=== PATIENT | female | born 1985 | race Two or more races ===

== ENCOUNTER 2020-05-16 00:55 | Emergency (ER) | payer MEDICARE, MEDICAID, SELFPAY ==
[2020-05-16 01:04] VITALS: BP 159/102; PULSE 120; RESP 15; TEMP 36.4
--- NOTE | 2020-05-16 01:48 | PC.NURSE ---
PT DENIES S/H IDEATIONS. PT STATES IM HERE, BUT I DON'T KNOW WHY, MY DROPPED ME OFF AND IS IN THE WR . PT ALERT, SPEAKING IN FULL SENTENCES, RESPIRATIONS EASY, N/L. SKIN W/D/P. PT DENIES ANY COMPLAINTS AT THIS TIME.
--- NOTE | 2020-05-16 01:50 | PC.NURSE ---
PT RETURNING TO PT'S ROOM, BELONGINGS WHERE GONE AND PT NOT IN HER ROOM. LOOKED FOR PT IN RESTROOMS AND IN WR. PT LEFT BEFORE MD'S EVAL.
== END 2020-05-16 01:45 | disposition left against medical advice (07) ==
LOC: HO.ED 01:42
PROVIDERS: Emergency Provider Emergency Medicine
DX: F41.9 Anxiety disorder, unspecified (principal)
CPT/HCPCS: 99281

== ENCOUNTER 2020-05-20 20:23 | Inpatient (IN) | payer MEDICARE, MEDICAID, SELFPAY ==
[2020-05-20 21:03] VITALS: BP 175/101; PULSE 112; RESP 18; TEMP 36.8; O2SAT 99; BMI 37.3
--- NOTE | 2020-05-20 21:09 | PC.NURSE ---
PT COOPERATIVE WITH MANAGER CUSTOMER SERVICE WITH FEMALE RN. UNABLE TO PROVIDE URINE SPEC. HYPERVERBAL. RESPONDING TO INTERNAL STIMULI, TALKING TO SELF. PT DENIES SI/HI, REPORTS SHE DOES NOT KNOW WHY SHE IS HERE.
[2020-05-20 22:07] LABS: Hematocrit 37.8 % (37-47); Hemoglobin 12.7 g/dl (12.0-16.0); Mean Corpuscular HGB Conc 33.6 g/dl (31.0-35.0); Mean Corpuscular Hemoglobin 31.4 pg (27.0-33.0); Mean Corpuscular Volume 93.6 fL (80-98); Mean Platelet Volume 10.3 fL (9.4-12.3); Platelet Count 321 X10*3/uL (160-400); Red Blood Count 4.04 X10*6/uL (4.20-5.50); Red Cell Distribution Width 11.9 % (11.0-16.0); White Blood Count 14.3 X10*3/uL (4.8-10.8)
[2020-05-20 22:27] LABS: Anion Gap 14 (12-20); Blood Urea Nitrogen 22 mg/dL (9-16); Calcium 9.3 mg/dL (8.4-10.2); Carbon Dioxide 25 mmol/L (22-29); Chloride 104 mmol/L (96-108); Creatinine Clr Calc Pharmacy 80.8; Estimated Glomerular Filt Rate > 60; Glucose Random 185 mg/dL (60-115); Potassium 3.8 mmol/l (3.3-5.1); Sodium 139 mmol/L (135-145)
[2020-05-20 23:39] LABS: Amphetamine Screen Urine Not Detected (Not Detect); Barbiturates, Urine Not Detected (Not Detect); Benzodiazepines Screen Urine Not Detected (Not Detect); Cannabinoid Screen Urine POSITIVE (Not Detect); Cocaine Screen Urine Not Detected (Not Detect); Opiate Screen Urine Not Detected (Not Detect); Phencyclidine Screen Urine Not Detected (Not Detect)
[2020-05-20 23:42] VITALS: BP 172/101; PULSE 107; RESP 18; TEMP 36.2; O2SAT 98
[2020-05-20 23:52] LABS: Glucose Urine UA NEG (NEG); Leukocyte Esterase Urine NEG (NEG); Nitrite Urine NEG (NEG); Urine Blood NEG (NEG); Urine Ketones NEG (NEG); Urine Protein NEG (NEG-TRACE)
[2020-05-20 23:54] LABS: Appearance Urine CLEAR; Color Urine YELLOW
[2020-05-20 23:56] LABS: UPreg QC Valid YES; Urine Pregnancy NEGATIVE (NEGATIVE)
[2020-05-21] VITALS (8 sets, daily range): BP systolic 131–152; BP diastolic 78–106; PULSE 18–112; RESP 16–20; TEMP 36.1–36.8; O2SAT 95–98
--- NOTE | 2020-05-21 | XR_ITS ---
EXAMINATION: XR CHEST CLINICAL INFORMATION: Leukocytosis COMPARISON: None TECHNIQUE: Frontal view of the chest was obtained. FINDINGS: The cardiac and mediastinal contours are normal. The lungs are clear. There is no pleural effusion or pneumothorax. There are degenerative changes of the spine. IMPRESSION: No evidence for pneumonia.
--- NOTE | 2020-05-21 00:42 | ED_ITS ---
HPI - Psych General Chief Complaint: Psychiatric Symptoms Stated Complaint: PSYCHOTIC EPISODE Time Seen by Provider: 05/21/20 00:13 Source: RN notes reviewed Mode of arrival: EMS Limitations: no limitations History of Present Illness HPI Narrative: Patient brought in by EMS for evaluation. Patient is sent by family for psychotic episode. Patient is not compliant with her psych and medical meds. Patient has been loud and talking to herself. Patient has been talking to her imaginary boyfriend that does not exist. Patient herself denies any suicidal / homicidal ideation. MD complaint: other ( Psychotic) Related Data Home Medications Medication Instructions Recorded Confirmed albuterol sulfate 1 vial INHALATION Q4H PRN 05/21/20 05/21/20 atorvastatin 1 tab PO BEDTIME 05/21/20 05/21/20 dulaglutide [Trulicity] 0.5 ml SUBCUT QWEEK 05/21/20 05/21/20 fluticasone propion-salmeterol 1 puff INHALATION BID 05/21/20 05/21/20 [Advair Diskus] hydroxyzine HCl 1 tab PO TID PRN 05/21/20 05/21/20 lisinopril 1 tab PO DAILY 05/21/20 05/21/20 trazodone 2 tab PO BEDTIME 05/21/20 05/21/20 Allergies Allergy/AdvReac Type Severity Reaction Status Date / Time No Known Allergies Allergy Verified 05/21/20 02:41 [No Known Allergies*] Review of Systems Constitutional: Constitutional: Reports as per HPI, Reports no additional constitutional complaints and Denies snoring Cardiovascular: Cardiovascular: Reports as per HPI, Reports no additional cardiovascular complaints, Denies Abdominal Cramping after Meds, Denies Abdominal Distension, Denies dyspnea, Denies dyspnea on exertion, Denies orthopnea and Denies paroxysmal nocturnal dyspnea Respiratory: Respiratory: Reports no additional respiratory complaints, Reports no additional respiratory complaints, Denies change in phlegm color, Denies chest congestion, Denies cough, Denies hemoptysis, Denies excessive phlegm production, Denies pain on inspiration, Denies pain with cough, Denies dyspnea, Denies dyspnea on exertion, Denies snoring, Denies stridor and Denies wheezing Gastrointestinal: Gastrointestinal: Reports as per HPI, Reports no additional gastrointestinal complaints, Denies abdominal pain, Denies belching, Denies melena, Denies bloating and Denies hematochezia Neurologic: Reports behavioral changes Psychiatric: Psychiatric: Reports behavioral changes, Reports difficulty concentrating, Reports visual hallucinations, Denies homicidal ideation and Denies suicidal ideation Allergic/Immunologic: Allergic/Immunologic: Denies wheezing ON LICENSE OF [facility] Social History Social History Advance Directives: No Advance Directives Information Provided: No Physical Exam Vital Signs and I&O and Narrative: Vital Signs and I&O: Vital Signs Temp 97.1 F 05/20/20 23:42 Pulse 18 L 05/21/20 01:28 Resp 18 05/20/20 23:42 BP 172/101 H 05/20/20 23:42 Pulse Ox 98 05/20/20 23:42 Intake & Output 05/20/20 05/20/20 05/21/20 06:59 18:59 06:59 Weight 86.581 kg Body Mass Index 37.3 Const: General: cooperative, comfortable and no acute distress HENMT: Head: Yes normal to inspection Chest: Chest palpation & inspection: normal inspection of the chest, normal palpation of entire chest wall, normal inspection of the chest and no crepitus Resp: Effort & Inspection: normal respiratory effort, able to speak in comp lete sentences, normal respiratory pattern, no audible wheezes and no cough Auscultation: clear to auscultation bilaterally Cardio: Jugular venous distension: no JVD Rhythm: regular rhythm Heart sounds: S1 normal heart sound present and S2 normal heart sound present GI: Inspection: Yes normal to inspection, No abdominal wall ecchymosis, No Abdominal wall edema, No distended and No incision Palpation (GI): nontender Psych: Appearance: disheveled Speech and movement: Normal speech and movement present Affect: Indifferent affect present Attitude: cooperative Thought process: Flight of ideas present and Tangential thought process present Thought content: Hallucination(s) present ( imagine boyfriend) visual Course Course Course Narrative: patient will be crisis evaluation patient for psychosis. Patient presently is not suicidal or homicidal. Patient will have labs drawn. Patient will be given Ativan and Benadryl to calmed down and improved vital signs. Reevaluation(s) Reevaluation #1: patient is sleeping and not in any distress. Patient awaiting BHN evaluation in the morning Time: 02:46 MDM - Psych MDM Narrative Medical decision making narrative: patient will be awaiting for BHN in consultation in the morning. Patient Benadryl to help her fall asleep. Patient was extremely hyper and psychotic. Case signed out to Dr. Hall Lab Data Result diagrams: 05/20/20 22:01 05/20/20 22:02 Labs: Lab Results 05/20/20 05/20/20 05/20/20 Range/Units 22:00 22:00 22:01 WBC 14.3 H (4.8-10.8) X10*3/uL RBC 4.04 L (4.20-5.50) X10*6/uL Hgb 12.7 (12.0-16.0) g/dl Hct 37.8 (37-47) % MCV 93.6 (80-98) fL MCH 31.4 (27.0-33.0) pg MCHC 33.6 (31.0-35.0) g/dl RDW 11.9 (11.0-16.0) % Plt Count 321 (160-400) X10*3/uL MPV 10.3 (9.4-12.3) fL Absolute Nucleated RBC 0.000 (0.0-0.012) X10*3/uL Nucleated RBC % (auto) 0.0 (0.0-0.2) /100WBC Sodium (135-145) mmol/L Potassium (3.3-5.1) mmol/l Chloride (96-108) mmol/L Carbon Dioxide (22-29) mmol/L Anion Gap (12-20) BUN (9-16) mg/dL Creatinine (0.5-1.4) mg/dL Estim Creat Clear Calc Estimated GFR Random Glucose (60-115) mg/dL Calcium (8.4-10.2) mg/dL Urine Color YELLOW Urine Appearance CLEAR Urine pH 6.0 (5.0-8.0) Ur Specific [place] 1.020 (1.005-1.025) Urine Protein NEG (NEG-TRACE) MG/DL Urine Glucose (UA) NEG (NEG) MG/DL Urine Ketones NEG (NEG) MG/DL Urine Blood NEG (NEG) Urine Nitrite NEG (NEG) Ur Leukocyte Esterase NEG (NEG) Urine Test NEGATIVE (NEGATIVE) Urine Opiates Screen (Not Detect) Ur Barbiturates Screen (Not Detect) Ur Phencyclidine Scrn (Not Detect) Ur Amphetamines Screen (Not Detect) U Benzodiazepines Scrn (Not Detect) Urine Cocaine Screen (Not Detect) U Marijuana (THC) Screen (Not Detect) 05/20/20 05/20/20 Range/Units 22:02 23:00 WBC (4.8-10.8) X10*3/uL RBC (4.20-5.50) X10*6/uL Hgb (12.0-16.0) g/dl Hct (37-47) % MCV (80-98) fL MCH (27.0-33.0) pg MCHC (31.0-35.0) g/dl RDW (11.0-16.0) % Plt Count (160-400) X10*3/uL MPV (9.4-12.3) fL Absolute Nucleated RBC (0.0-0.012) X10*3/uL Nucleated RBC % (auto) (0.0-0.2) /100WBC Sodium 139 (135-145) mmol/L Potassium 3.8 (3.3-5.1) mmol/l Chloride 104 (96-108) mmol/L Carbon Dioxide 25 (22-29) mmol/L Anion Gap 14 (12-20) BUN 22 H (9-16) mg/dL Creatinine 0.94 (0.5-1.4) mg/dL Estim Creat Clear Calc 80.8 Estimated GFR > 60 Random Glucose 185 H (60-115) mg/dL Calcium 9.3 (8.4-10.2) mg/dL Urine Color Urine Appearance Urine pH (5.0-8.0) Ur Specific [place] (1.005-1.025) Urine Protein (NEG-TRACE) MG/DL Urine Glucose (UA) (NEG) MG/DL Urine Ketones (NEG) MG/DL Urine Blood (NEG) Urine Nitrite (NEG) Ur Leukocyte Esterase (NEG) Urine Test (NEGATIVE) Urine Opiates Screen Not Detected (Not Detect) Ur Barbiturates Screen Not Detected (Not Detect) Ur Phencyclidine Scrn Not Detected (Not Detect) Ur Amphetamines Screen Not Detected (Not Detect) U Benzodiazepines Scrn Not Detected (Not Detect) Urine Cocaine Screen Not Detected (Not Detect) U Marijuana (THC) Screen POSITIVE H (Not Detect) Discharge Plan Discharge Prescriptions: No Action atorvastatin 40 mg tablet 1 tab PO BEDTIME RF: 0 fluticasone propion-salmeterol [Advair Diskus] 250-50 mcg/dose blister with device 1 puff inhalation BID RF: 0 albuterol sulfate 2.5 mg /3 mL (0.083 %) solution for nebulization 1 vial inhalation Q4H PRN (Reason: wheezing) RF: 0 trazodone 100 mg tablet 2 tab PO BEDTIME RF: 0 hydroxyzine HCl 25 mg tablet 1 tab PO TID PRN (Reason: anxiety) RF: 0 lisinopril 2.5 mg tablet 1 tab PO DAILY RF: 0 Trulicity 1.5 mg/0.5 mL pen injector 0.5 ml subcut QWEEK RF: 0
[2020-05-21] MEDS: LORazepam 1 MG TABLET 2 MG PO (00:46)
[2020-05-21] MEDS: diphenhydrAMINE HCL 25 MG TABLET 50 MG PO (00:47)
--- NOTE | 2020-05-21 00:49 | MHC.MBSS ---
Patient just got seen by provider, patient psychotic, actively self dialoguing, loud at time but redirectable. Pleasant on engaged. Provider ordered Ativan 2 mg tablet and Benadryl 50 mg/administered as ordered. Patient singing currently. Will continue to monitor.
--- NOTE | 2020-05-21 02:48 | PC.NURSE ---
Patient in her room, kneeling on floor with body on bed, appears praying, quiet, medication reconciliation completed/reviewed by provider/pending emar update. Will continue to monitor..
--- NOTE | 2020-05-21 04:05 | PC.NURSE ---
Patient in bed appears sleeping no distress observed/reported. Will continue to monitor.
[2020-05-21 06:09] LABS: Glucose, Whole Blood 119 mg/dL (60-115)
--- NOTE | 2020-05-21 06:27 | PC.NURSE ---
Patient out of room in milieu, denied distress, POC was 119 at 0607. Patient continues self dialoguing. Will continue to monitor.
--- NOTE | 2020-05-21 07:14 | PC.NURSE ---
Report recieved. Pt currently sitting in her room, eating breakfast. Self-dialogue noted. Pt's called and said that he does not believe she has been taking her medications, states that he could not find any medication bottles at home. Her stated that this is the worst that he has seen her and that every year this happens, he stated that last year she spent a few months at [facility]. pt currently waiting to be seen by angel.
[2020-05-21] MEDS: Fluticasone/Vilanterol 100/25 BLST.W.DEV 1 PUFF INHALE (09:41)
[2020-05-21] MEDS: lisinopriL 2.5 MG TABLET PO (09:42)
--- NOTE | 2020-05-21 10:11 | PC.NURSE ---
Pt listening to music, calm and cooperative. self-dialogue contines to be noted, pt pleasant, awaiting eval by jenn
--- NOTE | 2020-05-21 10:58 | PC.NURSE ---
Pt resting, calm and cooperative. denies complaints. per provider ok to change vital signs to q6.
--- NOTE | 2020-05-21 13:02 | PC.NURSE ---
PT resting, calm and cooperative, denies complaints.
--- NOTE | 2020-05-21 15:06 | PC.NURSE ---
PT currently in her room, appears to be responding internally, self dialogue heard. pt calm and cooperative, pleasant in conversation, denies complaints.
--- NOTE | 2020-05-21 15:46 | PC.NURSE ---
Pt noted to be naked in her room singing loudly, pt redirected to get dressed. Pt offered medication, pt refused, stating that Leora is not her name, she would like to be called Xiomara and that this RN can get the fuck out of my room , pt then slammed the door. Pt continues to sing loudly and yell in her room.
--- NOTE | 2020-05-21 16:59 | PC.NURSE ---
Pt continues to sing in her room, denies complaints, self-dialogue noted.
[2020-05-21] MEDS: Atorvastatin Calcium 40 MG TABLET PO (20:10)
[2020-05-21] MEDS: traZODone HCL 100 MG TABLET 200 MG PO (20:10)
--- NOTE | 2020-05-21 21:52 | PC.NURSE ---
pt in her room talking to herself, taking her clothing off. pt is pleasant with this rn and is taking her medications as prescribed.
[2020-05-21] MEDS: hydrOXYzine HCL 25 MG TABLET PO (23:52)
--- NOTE | 2020-05-21 23:55 | PC.NURSE ---
pt talking to herself raising her voice, pt medicated with hydroxyzine 25 mg. pt is in her room undressed and blankets over her body. no skin showing.
[2020-05-22] VITALS (10 sets, daily range): BP systolic 113–128; BP diastolic 57–87; PULSE 19–122; RESP 16–20; TEMP 36.2–37; O2SAT 95–99
--- NOTE | 2020-05-22 | ECG_ITS ---
Test Reason : MEDICAL CLEARANCE Blood Pressure : / mmHG Vent. Rate : 085 BPM Atrial Rate : 085 BPM P-R Int : 122 ms QRS Dur : 082 ms QT Int : 384 ms P-R-T Axes : 060 018 041 degrees QTc Int : 456 ms Normal sinus rhythm Normal ECG No previous ECGs available Referred By: Magnolia Hall Electronically Signed By:NOEMI FREED MD
--- NOTE | 2020-05-22 01:09 | PC.NURSE ---
pt took a shower and is now back in her room. pt is with staff making up her bed with her. pt is visable on the monitor. pt is talking in jamaican about her family.
[2020-05-22] MEDS: OLANZapine 5 MG TABLET PO (02:52)
--- NOTE | 2020-05-22 03:15 | PC.NURSE ---
pt in her room undressed and removing the mattress onto the floor. pt was having a conversation with her . pt is now dressed and is making her bed. door is closed. needs at bedside
--- NOTE | 2020-05-22 03:39 | PC.NURSE ---
pt has been non stop talking and no s/s of tiredness. pt has rapied speach in uruguayan with the staff. needs met, pt remaking the bed over and over. staff is now putting the matress back on the bed, pt response is laughter. both the pt and staff member are working together to assist pt back to bed and with making the bed.
--- NOTE | 2020-05-22 04:07 | PC.NURSE ---
pt having hypersexual behavior. staff in room redressing pt again. also to inform her that her is asleep. pt is back to bed with hospital attire on.
--- NOTE | 2020-05-22 04:38 | PC.NURSE ---
pt out of her room with clothing on and blanket over her head. pt proceeded to the common area and is playing with herself inappropriatly. attempted to redirect pt and she states that all the men want her.
--- NOTE | 2020-05-22 06:09 | PC.NURSE ---
pt appears to be asleep in her bed. pt has a bathblanket on her. pt is visable on the monitor, pt is a inpt bed search. pt has been off her medication for 1.5 years.
--- NOTE | 2020-05-22 06:17 | PC.NURSE ---
pt has just fell asleep for 15 min. pt comes out of her room with no clothing on. pt has been instructed to keep her clothing on due to not approp and male pt in the pod. pt has been redirected mult times and will follow commands but for just a brief time period and then pt undresses and starts to have hyper sexual behavior. example pt has acted out her wedding in her room then goes to the [facility] area to have her honeymoon. pt pulled the matress off the bed for her to sleep on, pt is not even in the hospital. provider made aware and pt has been medicated with atarax, zyuprexa. pt still is seeing and hearing voices.
[2020-05-22] MEDS: LORazepam 1 MG TABLET 2 MG PO (07:07)
[2020-05-22] MEDS: OLANZapine 10 MG TABLET PO (07:07)
--- NOTE | 2020-05-22 07:12 | PC.NURSE ---
Report received. PT was incontinent and ingesting her own excrement during an episode this morning. PT was rocking back and forth in her chair and throwing herself on the floor. PT accepted medications per eMAR.
--- NOTE | 2020-05-22 07:28 | PC.NURSE ---
Pt noted to put herself on the floor gently, bracing with her hands, pt redirected, pt attempted to stand on the chair multiple times, pt looking at staff but will not obey commands. pt assisted to dress and lay in her bed. Dr. beckman in to see pt, psych consult in place. Pt then noted to put feces into her mouth, it was removed, staff cleaned pt's hands, pt accepted assistance. Pt responding to staff at this time, pt states I don't know whats going on, this has never happened before. Pt oriented to place, time and self, plan of care explained, pt states that she just wants help.
--- NOTE | 2020-05-22 09:00 | PC.NURSE ---
PT is sleeping in bed. Breathing is even and unlabored. Inpatient bed search in progress.
--- NOTE | 2020-05-22 10:13 | PC.NURSE ---
Provider stated PT is ok for vitals q6h.
--- NOTE | 2020-05-22 11:04 | PC.NURSE ---
PT woke up and went to take a shower. When she came out of shower she made her bed and then went back into the shower again with her clothes on. PT is now in the shower engaging in self dialogue.
--- NOTE | 2020-05-22 13:15 | PC.NURSE ---
PT is pacing around outside of her room while conversing with staff. Calm and cooperative. No other complaints at this time.
[2020-05-22] MEDS: LORazepam 1 MG TABLET PO ×2 (14:02→20:27)
[2020-05-22] MEDS: OLANZapine ODT 10 MG TAB.RAPDIS 5 MG TRANSLINGU (14:02)
--- NOTE | 2020-05-22 15:15 | PC.NURSE ---
PT is in the bathroom, complaining that she has pain ad needs to have a bowel movement. Engaging in self dialogue and sobbing frequently. Cooperative and able to be redirected.
--- NOTE | 2020-05-22 16:52 | P.CNPS_ITS ---
History of Present Illness Chief Complaint: PSYCHOTIC EPISODE Reason for Consult: psychosis Requesting physician: Richy Duffy Discussed with referring provider: Yes Sources of Information: chart reviewed and crisis/core team assessment reviewed HPI Narrative: Patient is a 34 year old female with reported history of Bipolar I disorder. Currently in BH area of ED due to erratic behaviors at home, including paranoia, and responding to internal stimuli. During her brief time in the emergency department she has been hypersexual, pressured, and quite psychotic. She has one more than one occasion placed her feces in her mouth, she reportedly licked the floor for some time, and is frequently engaging in full conversations with voices only she is hearing. She has been accepting of PRN medications that have been offered to her, and when this ad copy writer arrived this morning she was asleep after having recently recieved 10mh Zyprexa PO and Lorazepam 1mg PO. Based on clincial report, not appropriate to wake patient to conduct interview, so chart reviewed, including crisis eval and discussed with RN. Labs and EKG reviewed. Past Psychiatric History: Per collateral, pt has diagnosis of Bipolar Disorder and has been psychiatrically admitted numerous time in the past for similar presentation (hallucinations, paranoia, lack of sleep). reported that patient has been off of her medications for quite some time (unclear what her previous medication regimen was) Medical Evaluation Reviewed: Yes Personal & Social History: Per crisis eval: Patient is and has strong social supports Also reported that patient smokes marijuana frequently UDS negative for any other substances Review of Systems Review of Systems Yes Unobtainable due to mental status Diagnostics Vital Signs (24Hr): Vital Signs - 24 hr 05/21/20 20:18 05/21/20 23:59 05/22/20 02:09 Temperature 97 F 98.3 F 98.6 F Pulse Rate 112 H 102 H Respiratory Rate 20 16 Blood Pressure 152/96 H 134/79 Pulse Oximetry 95 96 05/22/20 02:11 05/22/20 05:02 05/22/20 06:43 Temperature 98.6 F 98.4 F Pulse Rate 92 97 76 Respiratory Rate 18 20 16 Blood Pressure 122/77 128/79 Pulse Oximetry 97 95 98 05/22/20 07:25 05/22/20 08:00 05/22/20 13:00 Temperature 97.5 F 97.6 F Pulse Rate 85 19 L 122 H Respiratory Rate 16 18 Blood Pressure 113/57 L Pulse Oximetry 99 98 Body Mass Index 37.3 Labs Results: 05/20/20 22:01 05/20/20 22:02 Labs: Laboratory Results - last 48 hr 05/20/20 05/20/20 05/20/20 22:00 22:00 22:01 WBC 14.3 H RBC 4.04 L Hgb 12.7 Hct 37.8 MCV 93.6 MCH 31.4 MCHC 33.6 RDW 11.9 Plt Count 321 MPV 10.3 Absolute Nucleated RBC 0.000 Nucleated RBC % (auto) 0.0 Sodium Potassium Chloride Carbon Dioxide Anion Gap BUN Creatinine Estim Creat Clear Calc Estimated GFR POC Glucose Random Glucose Calcium Urine Color YELLOW Urine Appearance CLEAR Urine pH 6.0 Ur Specific [place] 1.020 Urine Protein NEG Urine Glucose (UA) NEG Urine Ketones NEG Urine Blood NEG Urine Nitrite NEG Ur Leukocyte Esterase NEG Urine Test NEGATIVE Urine Opiates Screen Ur Barbiturates Screen Ur Phencyclidine Scrn Ur Amphetamines Screen U Benzodiazepines Scrn Urine Cocaine Screen U Marijuana (THC) Screen 05/20/20 05/20/20 05/21/20 22:02 23:00 06:05 WBC RBC Hgb Hct MCV MCH MCHC RDW Plt Count MPV Absolute Nucleated RBC Nucleated RBC % (auto) Sodium 139 Potassium 3.8 Chloride 104 Carbon Dioxide 25 Anion Gap 14 BUN 22 H Creatinine 0.94 Estim Creat Clear Calc 80.8 Estimated GFR > 60 POC Glucose 119 H Random Glucose 185 H Calcium 9.3 Urine Color Urine Appearance Urine pH Ur Specific [place] Urine Protein Urine Glucose (UA) Urine Ketones Urine Blood Urine Nitrite Ur Leukocyte Esterase Urine Test Urine Opiates Screen Not Detected Ur Barbiturates Screen Not Detected Ur Phencyclidine Scrn Not Detected Ur Amphetamines Screen Not Detected U Benzodiazepines Scrn Not Detected Urine Cocaine Screen Not Detected U Marijuana (THC) Screen POSITIVE H Mental Status Exam Mental Status Exam Narrative: Patient was sleeping, but per report she is bizarre, pressured, anxious, responding to internal stimuli, restless at times, hypersexual at times, disorganized with poor insight and judgment Medications Medications Current Medications Generic Name Dose Route Start Last Admin Trade Name Freq PRN Reason Stop Dose Admin Albuterol Sulfate 2.5 mg 05/21/20 02:43 Albuterol Sulfate (0.083%) 2.5 Mg/3 Ml Vial.Neb INHALE Q4H PRN wheezing Atorvastatin Calcium 40 mg 05/21/20 21:00 05/21/20 20:10 Atorvastatin Calcium 40 Mg Tablet PO 40 mg BEDTIME SEBASTIÁN Administration Fluticasone/Vilanterol 1 puff 05/21/20 09:00 05/22/20 10:19 Fluticasone/Vilanterol 100/25 Blst.W.Dev INHALE Not Given RDAILY SEBASTIÁN Hydroxyzine HCl 25 mg 05/21/20 02:43 05/21/20 23:52 Hydroxyzine Hcl 25 Mg Tablet PO 25 mg TID PRN Administration anxiety Lisinopril 2.5 mg 05/21/20 09:00 05/22/20 10:19 Lisinopril 2.5 Mg Tablet PO Not Given DAILY SEBASTIÁN Protocol Lorazepam 1 mg 05/22/20 13:08 05/22/20 14:02 Lorazepam 1 Mg Tablet PO 1 mg Q4H PRN Administration anxiety/restlessness Olanzapine 5 mg 05/22/20 13:00 05/22/20 14:02 Olanzapine Odt 10 Mg Tab.Rapdis TRANSLINGU 5 mg DAILY PRN Administration Agitation Oxcarbazepine 300 mg 05/22/20 21:00 Oxcarbazepine 300 Mg Tablet PO BID SEBASTIÁN Trazodone HCl 200 mg 05/21/20 21:00 05/21/20 20:10 Trazodone Hcl 100 Mg Tablet PO 200 mg BEDTIME SEBASTIÁN Administration Allergies Allergies Allergy/AdvReac Type Severity Reaction Status Date / Time No Known Allergies Allergy Verified 05/21/20 02:41 [No Known Allergies*] Assessment & Plan Assessment & Plan (1) Bipolar I, most recent episode manic, severe with psychotic behavior: Status: Acute Code(s): F31.2 - Bipolar disorder, current episode manic severe with psychotic features Recommendations: * Zyprexa 10mg QHS * Zydis 5mg QD PRN for agitation * Lorazepam 1mg Q4 for restlessness * Trileptal 300mg BID * * Pt awaiting inpatient admission, doses should be titrated at that time * If additional PRNs are needed may increase lorazepam and Zyprexa doses as needed to maintain patient safety Greater than 50% of the session was spent on counseling and/or coordination of care
--- NOTE | 2020-05-22 17:15 | PC.NURSE ---
PT is standing in her room engaging in self dialogue. Calm and cooperative, easily redirectable. No other complaints.
--- NOTE | 2020-05-22 19:08 | PC.NURSE ---
Report received from Brennan and Neeraj MENEZES. Pt resting quietly in her room at this time. Awaiting bedsearch.
[2020-05-22] MEDS: Atorvastatin Calcium 40 MG TABLET PO (20:27)
[2020-05-22] MEDS: traZODone HCL 100 MG TABLET 200 MG PO (20:27)
[2020-05-22] MEDS: OXcarbazepine 300 MG TABLET PO (20:27)
--- NOTE | 2020-05-22 22:02 | PC.NURSE ---
Pt noted to be sleeping at this time, resp reg and even.
[2020-05-23 02:31] VITALS: RESP 15
--- NOTE | 2020-05-23 03:51 | PC.NURSE ---
Pt awake, requesting coffee for her throat and lips. Enc to have decaf tea instead. Pt agreeable. Pt asking for another pair of socks and if she can sit out in the common area, states when I am in the room I hear voices Pt currently making her bed and talking to herself in her room.
[2020-05-23 06:53] VITALS: BP 136/88; PULSE 96; RESP 16; TEMP 36.3; O2SAT 99
[2020-05-23] MEDS: OXcarbazepine 300 MG TABLET PO ×2 (08:40→21:52)
[2020-05-23 08:41] VITALS: BP 136/88; PULSE 96
[2020-05-23] MEDS: OLANZapine 2.5 MG TABLET PO (08:41)
[2020-05-23] MEDS: lisinopriL 2.5 MG TABLET PO (08:41)
--- NOTE | 2020-05-23 08:50 | PC.NURSE ---
pt calm and cooperative, took meds with no incident. performing adls independently.
[2020-05-23 10:53] VITALS: BP 118/72; PULSE 99; RESP 18; TEMP 37; O2SAT 96
[2020-05-23 10:59] LABS: SARS COV2 PCR INHOUSE NEGATIVE (Negative)
--- NOTE | 2020-05-23 17:42 | PC.ADMIT ---
Addendum entered by Alyssa Acuna RN 05/23/20 18:15: PT. DID NOT GIVE CONSENT TO SPEAK TO HER Original Note: PT. IS A 34 YEAR OLD CHINESE SPEAKING FEMALE WHO PRESENTS TO [facility] FROM [facility] ED AT APPROX. 1430. LEGAL STATUS NOT KNOWN AT PRESENT TIME, SHE IS COVID 19 NEG., UTOX POSITIVE FOR MARIJUANA. PT. DENIED NICOTINE AND ALCOHOL USE AND ANY OTHER SUBSTANCE USE. PT. HAS A HX OF [facility] ADMISSIONS, LAST IN 2018. PT.'S CALLED [facility] AND REQUESTED AN ASSESSMENT ON HER BEHALF. PT. HAS BEEN ACTING BIZARRE IN PUBLIC, SCREAMING AT PEOPLE, PROVOKING PEOPLE TO ATTACK HER. PT. HAS BEEN OBSERVED ENGAGING IN SELF DIALOGUE AND RESPONDING TO AH/VH. PT. HAS BEEN OFF HER MEDICATIONS, ZYPREXA AND LAMICTAL FOR 1.5 YEARS. DURING ADMISSION ASSESSMENT PT. APPEARED TO REACT TO INTERNAL STIMULI, SHE MADE STATEMENTS ABOUT HER AND MOTHER BEING VERBALLY ABUSIVE, SHE APPEARED MANIC, PARANOID AND DELUSIONAL. PT. CRIED DURING ASSESSMENT, SHE WAS CONFUSED AND INCONSISTENT WITH HER STATEMENTS. PT. DENIED PAIN, SHE WAS ORIENTED TO THE UNIT, PLACED ON 15 MIN. SAFETY CHECKS. PT. DENIED SI, REPORTED SHE WILL SEEK STAFF IF FEELINGS OF SI/SH/HI WILL ARISE. DR. Elenita TSE PLACED MEDICATION ORDERS.
[2020-05-23 18:00] VITALS: BP 128/76; PULSE 99; RESP 16; TEMP 36.6; O2SAT 96
[2020-05-23] MEDS: Atorvastatin Calcium 40 MG TABLET PO (21:52)
[2020-05-23] MEDS: traZODone HCL 100 MG TABLET 200 MG PO (21:53)
[2020-05-23 22:00] VITALS: BP 128/76; PULSE 99; TEMP 36.6; O2SAT 96
[2020-05-24 06:31] VITALS: BP 119/76; PULSE 94; TEMP 36.4
[2020-05-24 08:40] VITALS: BP 119/76; PULSE 94
[2020-05-24 08:40] LABS: Cholesterol 136 mg/dL; HDL Cholesterol 33 mg/dL; LDL Cholesterol Calculated 83 mg/dl; Triglycerides 100 mg/dL
[2020-05-24] MEDS: lisinopriL 2.5 MG TABLET PO (08:40)
[2020-05-24] MEDS: OXcarbazepine 300 MG TABLET PO (08:40)
[2020-05-24] MEDS: LORazepam 1 MG TABLET PO ×2 (08:41→23:47)
[2020-05-24] MEDS: OLANZapine 2.5 MG TABLET PO (08:41)
[2020-05-24 09:03] LABS: Thyroid Stimulating Hormone 0.71 mIU/mL (0.32-4.0)
[2020-05-24 09:08] LABS: Estimated Average Glucose 103 mg/dL; Hemoglobin A1c % 5.2 %
[2020-05-24 10:00] VITALS: BP 119/76; PULSE 94
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
[2020-05-24 22:00] VITALS: BP 136/69; PULSE 105; TEMP 36.2
[2020-05-24] MEDS: traZODone HCL 100 MG TABLET 200 MG PO ×2 (23:46→23:56)
[2020-05-24] MEDS: hydrOXYzine HCL 25 MG TABLET PO (23:47)
[2020-05-25] MEDS: OLANZapine ODT 10 MG TAB.RAPDIS 5 MG TRANSLINGU (05:32)
[2020-05-25 07:19] VITALS: BP 126/59; PULSE 99; TEMP 35.9
[2020-05-25 08:57] VITALS: BP 126/59; PULSE 99
[2020-05-25] MEDS: lisinopriL 2.5 MG TABLET PO (08:57)
[2020-05-25] MEDS: LORazepam 1 MG TABLET PO ×2 (08:57→17:54)
[2020-05-25] MEDS: OXcarbazepine 300 MG TABLET PO ×2 (08:58→20:13)
[2020-05-25] MEDS: OLANZapine 2.5 MG TABLET PO (08:58)
--- NOTE | 2020-05-25 19:15 | HO.PSYCHPN ---
Subjective Subjective Date of Service: 05/25/20 Reason For Visit: BIPOLAR DISORDER Subjective Notes: Conditional Voluntary Interim History: Leora was somewhat less pressured but she was perseverating on the idea that she is , even though she has not had relations with her or anyone else. She was pacing the halls, and praying a great deal Medication Compliance: Yes Side effects from medications: No Attending Groups: Intermittent Review of Systems Acute medical concerns: No Medical Review of Systems: unchanged Review of Systems Review of Systems Yes all other systems are reviewed and are negative Reports behavioral changes Psychiatric: Reports behavioral changes Mental Status Exam Mental Status Exam Patient Appearance: Disheveled Patient Orientation: Person Level of Consciousness: Appropriate Patient Behavior: Hyperactive, Anxious and Impulsive Mood Description: Elated Affect Description: Elated Ability to Follow Directions: Fair Speech Pattern: Perseverating and Pressured Memory Description: Intact Hallucinations: None Delusions: Paranoid Ideation and Present (Multiple delusional statements, of being ) Thought Process: Rumination Thought Content: positive for Flight of Ideas, positive for Preoccupation, positive for Loose Associations and positive for Disorganized Judgement: Poor Diagnostics Vital Signs (24Hr): Vital Signs - 24 hr 05/24/20 22:00 05/25/20 07:19 05/25/20 08:57 Temperature 97.1 F 96.6 F L Pulse Rate 105 H 99 99 Blood Pressure 136/69 126/59 L 126/59 L Body Mass Index 37.3 Labs Results: 05/20/20 22:01 05/20/20 22:02 Labs: Laboratory Results - last 48 hr 05/24/20 05/24/20 07:54 07:54 Estimat Average Glucose 103 Hemoglobin A1c % 5.2 Triglycerides 100 Cholesterol 136 LDL Cholesterol, Calc 83 HDL Cholesterol 33 TSH 0.71 Medications Medications Current Medications Generic Name Dose Route Start Last Admin Trade Name Freq PRN Reason Stop Dose Admin Acetaminophen 650 mg 05/23/20 21:02 Acetaminophen 325 Mg Tablet PO Q6H PRN Headache/Pain Mild Scale (1-3) Al Hydroxide/Mg Hydroxide 30 ml 05/23/20 21:02 Magnesium Hydrox/Alum Hydrox 30 Ml Oral.Susp PO Q6H PRN Heartburn/Nausea Albuterol Sulfate 2.5 mg 05/21/20 02:43 Albuterol Sulfate (0.083%) 2.5 Mg/3 Ml Vial.Neb INHALE Q4H PRN wheezing Atorvastatin Calcium 40 mg 05/21/20 21:00 05/24/20 21:40 Atorvastatin Calcium 40 Mg Tablet PO Not Given BEDTIME SEBASTIÁN Fluticasone/Vilanterol 1 puff 05/21/20 09:00 05/25/20 10:29 Fluticasone/Vilanterol 100/25 Blst.W.Dev INHALE Not Given RDAILY SEBASTIÁN Hydroxyzine HCl 25 mg 05/21/20 02:43 05/21/20 23:52 Hydroxyzine Hcl 25 Mg Tablet PO 25 mg TID PRN Administration anxiety Hydroxyzine HCl 25 mg 05/23/20 21:02 05/24/20 23:47 Hydroxyzine Hcl 25 Mg Tablet PO 25 mg BEDTIME PRN Administration Anxiety Lisinopril 2.5 mg 05/21/20 09:00 05/25/20 08:57 Lisinopril 2.5 Mg Tablet PO 2.5 mg DAILY SEBASTIÁN Administration Protocol Lorazepam 1 mg 05/22/20 13:08 05/25/20 17:54 Lorazepam 1 Mg Tablet PO 1 mg Q4H PRN Administration anxiety/restlessness Magnesium Hydroxide 30 ml 05/23/20 21:02 Milk Of Magnesia 30 Ml Oral.Susp PO DAILY PRN Constipation Naproxen 500 mg 05/24/20 10:31 Naproxen 500 Mg Tablet PO BID PRN Pain, Moderate (Pain Scale 4-6 Olanzapine 5 mg 05/22/20 13:00 05/25/20 05:32 Olanzapine Odt 10 Mg Tab.Rapdis TRANSLINGU 5 mg DAILY PRN Administration Agitation Olanzapine 2.5 mg 05/23/20 09:00 05/25/20 08:58 Olanzapine 2.5 Mg Tablet PO 2.5 mg DAILY SEBASTIÁN Administration Olanzapine 10 mg 05/25/20 21:00 Olanzapine 10 Mg Tablet PO BEDTIME SEBASTIÁN Olanzapine 5 mg 05/25/20 21:00 Olanzapine 5 Mg Tablet PO BEDTIME SEBASTIÁN Oxcarbazepine 300 mg 05/22/20 21:00 05/25/20 08:58 Oxcarbazepine 300 Mg Tablet PO 300 mg BID SEBASTIÁN Administration Trazodone HCl 200 mg 05/21/20 21:00 05/24/20 23:56 Trazodone Hcl 100 Mg Tablet PO 200 mg BEDTIME SEBASTIÁN Administration Trazodone HCl 50 mg 05/23/20 21:02 Trazodone Hcl 50 Mg Tablet PO BEDTIME PRN Insomnia Allergies Allergies Allergy/AdvReac Type Severity Reaction Status Date / Time No Known Allergies Allergy Verified 05/21/20 02:41 [No Known Allergies*] Assessment & Plan Assessment & Plan (1) Bipolar I, most recent episode manic, severe with psychotic behavior: Status: Acute Code(s): F31.2 - Bipolar disorder, current episode manic severe with psychotic features Assessment and Plan: Continue medication, but increase zyprexa. Collect collateral history Destimulation Greater than 50% of the session was spent on counseling and/or coordination of care Patient educated on: diagnosis, medication risk/benefits and therapeutic strategies Informed Consent: does not understand Reason for contiued inpatient stay Substantial Risk for: harm to others, inability to function and rapid decompensation
[2020-05-25] MEDS: OLANZapine 10 MG TABLET PO (20:13)
[2020-05-25] MEDS: OLANZapine 5 MG TABLET PO (20:13)
[2020-05-25] MEDS: Atorvastatin Calcium 40 MG TABLET PO (20:14)
[2020-05-25 21:51] VITALS: BP 121/72; PULSE 84; TEMP 36.1
[2020-05-26 05:00] VITALS: BP 112/71; PULSE 95; RESP 16; TEMP 35.8
[2020-05-26] MEDS: OLANZapine ODT 10 MG TAB.RAPDIS 5 MG TRANSLINGU (05:06)
[2020-05-26 08:15] VITALS: BP 112/71; PULSE 95
[2020-05-26] MEDS: lisinopriL 2.5 MG TABLET PO (08:15)
[2020-05-26] MEDS: OXcarbazepine 300 MG TABLET PO ×2 (08:16→21:39)
[2020-05-26] MEDS: OLANZapine 2.5 MG TABLET PO (08:16)
[2020-05-26] MEDS: LORazepam 1 MG TABLET PO (09:14)
[2020-05-26 16:30] VITALS: BP 123/78; PULSE 78; TEMP 36
[2020-05-26] MEDS: clonazePAM 0.5 MG TABLET PO (21:39)
[2020-05-26] MEDS: traZODone HCL 100 MG TABLET 200 MG PO (21:39)
[2020-05-26] MEDS: OLANZapine 10 MG TABLET PO (21:39)
[2020-05-26] MEDS: Atorvastatin Calcium 40 MG TABLET PO (21:39)
[2020-05-26] MEDS: OLANZapine 5 MG TABLET PO (21:39)
--- NOTE | 2020-05-26 22:50 | P.PNPSI_ITS ---
Subjective Subjective Reason For Visit: BIPOLAR DISORDER Interim History: patient disorganized internally preoccupied restless and agitated Review of Systems Reports behavioral changes Psychiatric: Reports behavioral changes Mental Status Exam Mental Status Exam Narrative: Patient was sleeping, but per report she is bizarre, pressured, anxious, responding to internal stimuli, restless at times, hypersexual at ti mes, disorganized with poor insight and judgment Patient Appearance: Disheveled Patient Orientation: Person Level of Consciousness: Appropriate Patient Behavior: Hyperactive, Anxious and Impulsive Mood Description: Elated Affect Description: Elated Ability to Follow Directions: Fair Speech Pattern: Perseverating and Pressured Memory Description: Intact Diagnostics Vital Signs (24Hr): Vital Signs - 24 hr 05/26/20 05:00 05/26/20 08:15 05/26/20 16:30 Temperature 96.5 F L 96.8 F Pulse Rate 95 95 78 Respiratory Rate 16 Blood Pressure 112/71 112/71 123/78 Body Mass Index 37.3 Labs Results: 05/20/20 22:01 05/20/20 22:02 Medications Medications Current Medications Generic Name Dose Route Start Last Admin Trade Name Freq PRN Reason Stop Dose Admin Acetaminophen 650 mg 05/23/20 21:02 Acetaminophen 325 Mg Tablet PO Q6H PRN Headache/Pain Mild Scale (1-3) Al Hydroxide/Mg Hydroxide 30 ml 05/23/20 21:02 Magnesium Hydrox/Alum Hydrox 30 Ml Oral.Susp PO Q6H PRN Heartburn/Nausea Albuterol Sulfate 2.5 mg 05/21/20 02:43 Albuterol Sulfate (0.083%) 2.5 Mg/3 Ml Vial.Neb INHALE Q4H PRN wheezing Atorvastatin Calcium 40 mg 05/21/20 21:00 05/26/20 21:39 Atorvastatin Calcium 40 Mg Tablet PO 40 mg BEDTIME SEBASTIÁN Administration Clonazepam 0.5 mg 05/26/20 10:40 05/26/20 21:39 Clonazepam 0.5 Mg Tablet PO 0.5 mg BID SEBASTIÁN Administration Fluticasone/Vilanterol 1 puff 05/21/20 09:00 05/26/20 10:57 Fluticasone/Vilanterol 100/25 Blst.W.Dev INHALE Not Given RDAILY SEBASTIÁN Hydroxyzine HCl 25 mg 05/21/20 02:43 05/21/20 23:52 Hydroxyzine Hcl 25 Mg Tablet PO 25 mg TID PRN Administration anxiety Hydroxyzine HCl 25 mg 05/23/20 21:02 05/24/20 23:47 Hydroxyzine Hcl 25 Mg Tablet PO 25 mg BEDTIME PRN Administration Anxiety Lisinopril 2.5 mg 05/21/20 09:00 05/26/20 08:15 Lisinopril 2.5 Mg Tablet PO 2.5 mg DAILY SEBASTIÁN Administration Protocol Lorazepam 1 mg 05/22/20 13:08 05/26/20 09:14 Lorazepam 1 Mg Tablet PO 1 mg Q4H PRN Administration anxiety/restlessness Magnesium Hydroxide 30 ml 05/23/20 21:02 Milk Of Magnesia 30 Ml Oral.Susp PO DAILY PRN Constipation Naproxen 500 mg 05/24/20 10:31 Naproxen 500 Mg Tablet PO BID PRN Pain, Moderate (Pain Scale 4-6 Olanzapine 5 mg 05/22/20 13:00 05/26/20 05:06 Olanzapine Odt 10 Mg Tab.Rapdis TRANSLINGU 5 mg DAILY PRN Administration Agitation Olanzapine 2.5 mg 05/23/20 09:00 05/26/20 08:16 Olanzapine 2.5 Mg Tablet PO 2.5 mg DAILY SEBASTIÁN Administration Olanzapine 10 mg 05/25/20 21:00 05/26/20 21:39 Olanzapine 10 Mg Tablet PO 10 mg BEDTIME SEBASTIÁN Administration Olanzapine 5 mg 05/25/20 21:00 05/26/20 21:39 Olanzapine 5 Mg Tablet PO 5 mg BEDTIME SEBASTIÁN Administration Oxcarbazepine 300 mg 05/22/20 21:00 05/26/20 21:39 Oxcarbazepine 300 Mg Tablet PO 300 mg BID SEBASTIÁN Administration Trazodone HCl 200 mg 05/21/20 21:00 05/26/20 21:39 Trazodone Hcl 100 Mg Tablet PO 200 mg BEDTIME SEBASTIÁN Administration Trazodone HCl 50 mg 05/23/20 21:02 Trazodone Hcl 50 Mg Tablet PO BEDTIME PRN Insomnia Allergies Allergies Allergy/AdvReac Type Severity Reaction Status Date / Time No Known Allergies Allergy Verified 05/21/20 02:41 [No Known Allergies*] Assessment & Plan Assessment & Plan (1) Bipolar I, most recent episode manic, severe with psychotic behavior: Status: Acute Code(s): F31.2 - Bipolar disorder, current episode manic severe with psychotic features Assessment and Plan: Continue medication, but increase zyprexa 20 mg daily Collect collateral history Destimulation Greater than 50% of the session was spent on counseling and/or coordination of care
[2020-05-27] MEDS: OLANZapine ODT 10 MG TAB.RAPDIS 5 MG TRANSLINGU (03:08)
[2020-05-27] MEDS: LORazepam 1 MG TABLET PO ×2 (03:09→18:41)
[2020-05-27 08:23] VITALS: BP 123/78; PULSE 78
[2020-05-27] MEDS: clonazePAM 0.5 MG TABLET PO ×2 (08:23→20:47)
[2020-05-27] MEDS: lisinopriL 2.5 MG TABLET PO (08:23)
[2020-05-27] MEDS: OXcarbazepine 300 MG TABLET PO ×2 (08:23→20:47)
[2020-05-27] MEDS: Fluticasone/Vilanterol 100/25 BLST.W.DEV 1 PUFF INHALE (08:24)
[2020-05-27] MEDS: OLANZapine 2.5 MG TABLET PO (08:24)
--- NOTE | 2020-05-27 09:41 | HO.PSYCHPN ---
Subjective Subjective Date of Service: 05/27/20 Reason For Visit: BIPOLAR DISORDER Subjective Notes: Conditional Voluntary Interim History: Leora was easily agitated , but less disorganized. She is able to detach from her peers. She is finding medications helpful. Her psychosis is less florid. Medication Compliance: Yes Side effects from medications: No Attending Groups: No Review of Systems Acute medical concerns: No Medical Review of Systems: unchanged Review of Systems Reports behavioral changes Psychiatric: Reports behavioral changes Mental Status Exam Mental Status Exam Patient Appearance: Disheveled Patient Orientation: Person, Place and Time Level of Consciousness: Restless Patient Behavior: Hyperactive, Hypersexual and Restless Mood Description: Anxious, Labile and Elated Affect Description: Anxious, Labile and Elated Patient Cognition Impaired: No Ability to Follow Directions: Fair Speech Pattern: Perseverating, Rambling and Pressured Memory Description: Episodic Impaired Hallucinations: None Delusions: Paranoid Ideation and Present Thought Content: positive for Circumstantial, positive for Loose Associations and positive for Disorganized Judgement: Poor Diagnostics Vital Signs (24Hr): Vital Signs - 24 hr 05/26/20 16:30 05/27/20 08:23 Temperature 96.8 F Pulse Rate 78 78 Blood Pressure 123/78 123/78 Body Mass Index 37.3 Labs Results: 05/20/20 22:01 05/20/20 22:02 Medications Medications Current Medications Generic Name Dose Route Start Last Admin Trade Name Mesfinq PRN Reason Stop Dose Admin Acetaminophen 650 mg 05/23/20 21:02 Acetaminophen 325 Mg Tablet PO Q6H PRN Headache/Pain Mild Scale (1-3) Al Hydroxide/Mg Hydroxide 30 ml 05/23/20 21:02 Magnesium Hydrox/Alum Hydrox 30 Ml Oral.Susp PO Q6H PRN Heartburn/Nausea Albuterol Sulfate 2.5 mg 05/21/20 02:43 Albuterol Sulfate (0.083%) 2.5 Mg/3 Ml Vial.Neb INHALE Q4H PRN wheezing Atorvastatin Calcium 40 mg 05/21/20 21:00 05/26/20 21:39 Atorvastatin Calcium 40 Mg Tablet PO 40 mg BEDTIME SEBASTIÁN Administration Clonazepam 0.5 mg 05/26/20 10:40 05/27/20 08:23 Clonazepam 0.5 Mg Tablet PO 0.5 mg BID SEBASTIÁN Administration Fluticasone/Vilanterol 1 puff 05/21/20 09:00 05/27/20 08:24 Fluticasone/Vilanterol 100/25 Blst.W.Dev INHALE 1 puff RDAILY SEBASTIÁN Administration Hydroxyzine HCl 25 mg 05/21/20 02:43 05/21/20 23:52 Hydroxyzine Hcl 25 Mg Tablet PO 25 mg TID PRN Administration anxiety Hydroxyzine HCl 25 mg 05/23/20 21:02 05/24/20 23:47 Hydroxyzine Hcl 25 Mg Tablet PO 25 mg BEDTIME PRN Administration Anxiety Lisinopril 2.5 mg 05/21/20 09:00 05/27/20 08:23 Lisinopril 2.5 Mg Tablet PO 2.5 mg DAILY SEBASTIÁN Administration Protocol Lorazepam 1 mg 05/22/20 13:08 05/27/20 03:09 Lorazepam 1 Mg Tablet PO 1 mg Q4H PRN Administration anxiety/restlessness Magnesium Hydroxide 30 ml 05/23/20 21:02 Milk Of Magnesia 30 Ml Oral.Susp PO DAILY PRN Constipation Naproxen 500 mg 05/24/20 10:31 Naproxen 500 Mg Tablet PO BID PRN Pain, Moderate (Pain Scale 4-6 Olanzapine 5 mg 05/22/20 13:00 05/27/20 03:08 Olanzapine Odt 10 Mg Tab.Rapdis TRANSLINGU 5 mg DAILY PRN Administration Agitation Olanzapine 2.5 mg 05/23/20 09:00 05/27/20 08:24 Olanzapine 2.5 Mg Tablet PO 2.5 mg DAILY SEBASTIÁN Administration Oxcarbazepine 300 mg 05/22/20 21:00 05/27/20 08:23 Oxcarbazepine 300 Mg Tablet PO 300 mg BID SEBASTIÁN Administration Trazodone HCl 200 mg 05/21/20 21:00 05/26/20 21:39 Trazodone Hcl 100 Mg Tablet PO 200 mg BEDTIME SEBASTIÁN Administration Trazodone HCl 50 mg 05/23/20 21:02 Trazodone Hcl 50 Mg Tablet PO BEDTIME PRN Insomnia Allergies Allergies Allergy/AdvReac Type Severity Reaction Status Date / Time No Known Allergies Allergy Verified 05/21/20 02:41 [No Known Allergies*] Assessment & Plan Assessment & Plan (1) Bipolar I, most recent episode manic, severe with psychotic behavior: Status: Acute Code(s): F31.2 - Bipolar disorder, current episode manic severe with psychotic features Assessment and Plan: Continue medication, but increase zyprexa 20 mg daily Collect collateral history Destimulation Greater than 50% of the session was spent on counseling and/or coordination of care Patient educated on: diagnosis and medication risk/benefits Informed Consent: does not understand Reason for contiued inpatient stay Substantial Risk for: rapid decompensation
[2020-05-27 10:00] VITALS: BP 112/67; PULSE 88; RESP 16; TEMP 36.8; O2SAT 98
[2020-05-27] MEDS: Flu Vacc QS2020-21(6mos up)/PF 0.5 ML SYRINGE IM (10:22)
[2020-05-27] MEDS: NaPROXEN 500 MG TABLET PO (13:34)
--- NOTE | 2020-05-27 14:08 | PC.NURSE ---
Pt signed 3 day notice, up on wednesday 05/30. , social work, Sandy victor.
[2020-05-27 17:19] VITALS: BP 135/78; PULSE 101; TEMP 36.3
[2020-05-27] MEDS: traZODone HCL 100 MG TABLET 200 MG PO (20:47)
[2020-05-27] MEDS: OLANZapine 10 MG TABLET 20 MG PO (20:47)
[2020-05-27] MEDS: Atorvastatin Calcium 40 MG TABLET PO (20:47)
[2020-05-28 06:18] VITALS: BP 130/73; PULSE 73; RESP 20; TEMP 36.3; O2SAT 99
[2020-05-28] MEDS: OLANZapine ODT 10 MG TAB.RAPDIS 5 MG TRANSLINGU (07:00)
[2020-05-28] MEDS: Fluticasone/Vilanterol 100/25 BLST.W.DEV 1 PUFF INHALE (08:11)
[2020-05-28 08:12] VITALS: BP 130/73; PULSE 73
[2020-05-28] MEDS: OLANZapine 2.5 MG TABLET PO (08:12)
[2020-05-28] MEDS: lisinopriL 2.5 MG TABLET PO (08:12)
[2020-05-28] MEDS: clonazePAM 0.5 MG TABLET PO ×2 (08:12→21:54)
[2020-05-28] MEDS: OXcarbazepine 300 MG TABLET PO ×2 (08:12→21:54)
--- NOTE | 2020-05-28 09:24 | HO.PSYCHPN ---
Subjective Subjective Date of Service: 05/28/20 Reason For Visit: BIPOLAR DISORDER Subjective Notes: Conditional Voluntary and 3 Day (Expires 05/29/20) Interim History: Leora was more organized, though she was still religiously preoccupied. She is finding medications helpful. Her psychosis is less florid. Records were obtained from [facility] which showed she responded to tegretol and haldol. She put in a three day notice since she says her is waiting for her and she can take medicine at home. Medication Compliance: Yes Side effects from medications: No Attending Groups: No Review of Systems Acute medical concerns: No Medical Review of Systems: unchanged Review of Systems Reports behavioral changes Psychiatric: Reports behavioral changes Mental Status Exam Mental Status Exam Patient Appearance: Well Grooomed Patient Orientation: Person, Place and Time Level of Consciousness: Restless Patient Behavior: Hyperactive, Hypersexual and Restless Mood Description: Anxious, Labile and Elated Affect Description: Anxious, Labile and Elated Patient Cognition Impaired: No Ability to Follow Directions: Fair Speech Pattern: Perseverating, Rambling and Pressured Memory Description: Episodic Impaired Hallucinations: None Delusions: Paranoid Ideation and Present (Of being ) Thought Content: positive for Circumstantial, positive for Loose Associations and positive for Disorganized Judgement: Poor Diagnostics Vital Signs (24Hr): Vital Signs - 24 hr 05/27/20 10:00 05/27/20 17:19 05/28/20 06:18 Temperature 98.2 F 97.4 F 97.4 F Pulse Rate 88 101 H 73 Respiratory Rate 16 20 Blood Pressure 112/67 135/78 130/73 Pulse Oximetry 98 99 05/28/20 08:12 Temperature Pulse Rate 73 Respiratory Rate Blood Pressure 130/73 Pulse Oximetry Body Mass Index 37.3 Labs Results: 05/20/20 22:01 05/20/20 22:02 Medications Medications Current Medications Generic Name Dose Route Start Last Admin Trade Name Freq PRN Reason Stop Dose Admin Acetaminophen 650 mg 05/23/20 21:02 Acetaminophen 325 Mg Tablet PO Q6H PRN Headache/Pain Mild Scale (1-3) Al Hydroxide/Mg Hydroxide 30 ml 05/23/20 21:02 Magnesium Hydrox/Alum Hydrox 30 Ml Oral.Susp PO Q6H PRN Heartburn/Nausea Albuterol Sulfate 2.5 mg 05/21/20 02:43 Albuterol Sulfate (0.083%) 2.5 Mg/3 Ml Vial.Neb INHALE Q4H PRN wheezing Atorvastatin Calcium 40 mg 05/21/20 21:00 05/27/20 20:47 Atorvastatin Calcium 40 Mg Tablet PO 40 mg BEDTIME SEBASTIÁN Administration Clonazepam 0.5 mg 05/26/20 10:40 05/28/20 08:12 Clonazepam 0.5 Mg Tablet PO 0.5 mg BID SEBASTIÁN Administration Fluticasone/Vilanterol 1 puff 05/21/20 09:00 05/28/20 08:11 Fluticasone/Vilanterol 100/25 Blst.W.Dev INHALE 1 puff RDAILY SEBASTIÁN Administration Hydroxyzine HCl 25 mg 05/21/20 02:43 05/21/20 23:52 Hydroxyzine Hcl 25 Mg Tablet PO 25 mg TID PRN Administration anxiety Hydroxyzine HCl 25 mg 05/23/20 21:02 05/24/20 23:47 Hydroxyzine Hcl 25 Mg Tablet PO 25 mg BEDTIME PRN Administration Anxiety Lisinopril 2.5 mg 05/21/20 09:00 05/28/20 08:12 Lisinopril 2.5 Mg Tablet PO 2.5 mg DAILY SEBASTIÁN Administration Protocol Lorazepam 1 mg 05/27/20 14:32 05/27/20 18:41 Lorazepam 1 Mg Tablet PO 1 mg Q4H PRN Administration Anxiety Magnesium Hydroxide 30 ml 05/23/20 21:02 Milk Of Magnesia 30 Ml Oral.Susp PO DAILY PRN Constipation Naproxen 500 mg 05/24/20 10:31 05/27/20 13:34 Naproxen 500 Mg Tablet PO 500 mg BID PRN Administration Pain, Moderate (Pain Scale 4-6 Olanzapine 5 mg 05/22/20 13:00 05/28/20 07:00 Olanzapine Odt 10 Mg Tab.Rapdis TRANSLINGU 5 mg DAILY PRN Administration Agitation Olanzapine 2.5 mg 05/23/20 09:00 05/28/20 08:12 Olanzapine 2.5 Mg Tablet PO 2.5 mg DAILY SEBASTIÁN Administration Olanzapine 20 mg 05/27/20 21:00 05/27/20 20:47 Olanzapine 10 Mg Tablet PO 20 mg BEDTIME SEBASTIÁN Administration Oxcarbazepine 300 mg 05/22/20 21:00 05/28/20 08:12 Oxcarbazepine 300 Mg Tablet PO 300 mg BID SEBASTIÁN Administration Trazodone HCl 200 mg 05/21/20 21:00 05/27/20 20:47 Trazodone Hcl 100 Mg Tablet PO 200 mg BEDTIME SEBASTIÁN Administration Trazodone HCl 50 mg 05/23/20 21:02 Trazodone Hcl 50 Mg Tablet PO BEDTIME PRN Insomnia Allergies Allergies Allergy/AdvReac Type Severity Reaction Status Date / Time No Known Allergies Allergy Verified 05/21/20 02:41 [No Known Allergies*] Assessment & Plan Assessment & Plan (1) Bipolar I, most recent episode manic, severe with psychotic behavior: Status: Acute Code(s): F31.2 - Bipolar disorder, current episode manic severe with psychotic features Assessment and Plan: CT zyprexa and trileptal Monitor mental status SW to liase with to get collateral history. Greater than 50% of the session was spent on counseling and/or coordination of care Patient educated on: diagnosis and medication risk/benefits Informed Consent: further education needed Reason for contiued inpatient stay Substantial Risk for: inability to function
[2020-05-28 19:30] VITALS: BP 136/79; PULSE 97; TEMP 36.3
[2020-05-28] MEDS: traZODone HCL 100 MG TABLET 200 MG PO (21:54)
[2020-05-28] MEDS: Atorvastatin Calcium 40 MG TABLET PO (21:55)
[2020-05-28 22:00] VITALS: BP 136/79; PULSE 97; TEMP 36.3
[2020-05-29 07:00] VITALS: BMI 36.5
[2020-05-29 08:10] VITALS: BP 145/82; PULSE 92; TEMP 36.3
[2020-05-29 08:31] VITALS: BP 145/82; PULSE 92
[2020-05-29] MEDS: clonazePAM 0.5 MG TABLET PO ×2 (08:31→20:58)
[2020-05-29] MEDS: OLANZapine 2.5 MG TABLET PO (08:31)
[2020-05-29] MEDS: lisinopriL 2.5 MG TABLET PO (08:31)
[2020-05-29] MEDS: OXcarbazepine 300 MG TABLET PO ×2 (08:31→20:58)
[2020-05-29] MEDS: Fluticasone/Vilanterol 100/25 BLST.W.DEV 1 PUFF INHALE (08:32)
--- NOTE | 2020-05-29 09:17 | P.PNPSI_ITS ---
Subjective Subjective Date of Service: 05/29/20 Reason For Visit: BIPOLAR DISORDER Subjective Notes: Conditional Voluntary Interim History: Leora was more organized, though she was still religiously preoccupied. She is finding medications helpful, though she has not been taking them consistently. She agreed to do so. Her psychosis is less florid. Records were obtained from [facility] which showed she responded to tegretol and haldol. She retracted her three day notice since she agrees that she is not ready to leave. Medication Compliance: Yes Side effects from medications: No Attending Groups: No Review of Systems Acute medical concerns: No Medical Review of Systems: unchanged Review of Systems Reports behavioral changes Psychiatric: Reports behavioral changes Mental Status Exam Mental Status Exam Patient Appearance: Well Grooomed Patient Orientation: Person, Place and Time Level of Consciousness: Restless Patient Behavior: Hyperactive, Hypersexual and Restless Mood Description: Anxious, Labile and Elated Affect Description: Anxious, Labile and Elated Patient Cognition Impaired: No Ability to Follow Directions: Fair Speech Pattern: Perseverating, Rambling and Pressured Memory Description: Episodic Impaired Hallucinations: None Delusions: Paranoid Ideation and Present (Of being ) Thought Content: positive for Circumstantial, positive for Loose Associations and positive for Disorganized Judgement: Poor Diagnostics Vital Signs (24Hr): Vital Signs - 24 hr 05/28/20 19:30 05/28/20 22:00 05/29/20 08:10 Temperature 97.4 F 97.4 F 97.3 F Pulse Rate 97 97 92 Blood Pressure 136/79 136/79 145/82 H 05/29/20 08:31 Temperature Pulse Rate 92 Blood Pressure 145/82 H Body Mass Index 37.3 Labs Results: 05/20/20 22:01 05/20/20 22:02 Medications Medications Current Medications Generic Name Dose Route Start Last Admin Trade Name Freq PRN Reason Stop Dose Admin Acetaminophen 650 mg 05/23/20 21:02 Acetaminophen 325 Mg Tablet PO Q6H PRN Headache/Pain Mild Scale (1-3) Al Hydroxide/Mg Hydroxide 30 ml 05/23/20 21:02 Magnesium Hydrox/Alum Hydrox 30 Ml Oral.Susp PO Q6H PRN Heartburn/Nausea Albuterol Sulfate 2.5 mg 05/21/20 02:43 Albuterol Sulfate (0.083%) 2.5 Mg/3 Ml Vial.Neb INHALE Q4H PRN wheezing Atorvastatin Calcium 40 mg 05/21/20 21:00 05/28/20 21:55 Atorvastatin Calcium 40 Mg Tablet PO 40 mg BEDTIME SEBASTIÁN Administration Clonazepam 0.5 mg 05/26/20 10:40 05/29/20 08:31 Clonazepam 0.5 Mg Tablet PO 0.5 mg BID SEBASTIÁN Administration Fluticasone/Vilanterol 1 puff 05/21/20 09:00 05/29/20 08:32 Fluticasone/Vilanterol 100/25 Blst.W.Dev INHALE 1 puff RDAILY SEBASTIÁN Administration Hydroxyzine HCl 25 mg 05/21/20 02:43 05/21/20 23:52 Hydroxyzine Hcl 25 Mg Tablet PO 25 mg TID PRN Administration anxiety Hydroxyzine HCl 25 mg 05/23/20 21:02 05/24/20 23:47 Hydroxyzine Hcl 25 Mg Tablet PO 25 mg BEDTIME PRN Administration Anxiety Lisinopril 2.5 mg 05/21/20 09:00 05/29/20 08:31 Lisinopril 2.5 Mg Tablet PO 2.5 mg DAILY SEBASTIÁN Administration Protocol Lorazepam 1 mg 05/27/20 14:32 05/27/20 18:41 Lorazepam 1 Mg Tablet PO 1 mg Q4H PRN Administration Anxiety Magnesium Hydroxide 30 ml 05/23/20 21:02 Milk Of Magnesia 30 Ml Oral.Susp PO DAILY PRN Constipation Naproxen 500 mg 05/24/20 10:31 05/27/20 13:34 Naproxen 500 Mg Tablet PO 500 mg BID PRN Administration Pain, Moderate (Pain Scale 4-6 Olanzapine 5 mg 05/22/20 13:00 05/28/20 07:00 Olanzapine Odt 10 Mg Tab.Rapdis TRANSLINGU 5 mg DAILY PRN Administration Agitation Olanzapine 2.5 mg 05/23/20 09:00 05/29/20 08:31 Olanzapine 2.5 Mg Tablet PO 2.5 mg DAILY SEBASTIÁN Administration Olanzapine 20 mg 05/27/20 21:00 05/28/20 22:29 Olanzapine 10 Mg Tablet PO Not Given BEDTIME SEBASTIÁN Oxcarbazepine 300 mg 05/22/20 21:00 05/29/20 08:31 Oxcarbazepine 300 Mg Tablet PO 300 mg BID SEBASTIÁN Administration Trazodone HCl 200 mg 05/21/20 21:00 05/28/20 21:54 Trazodone Hcl 100 Mg Tablet PO 100 mg BEDTIME SEBASTIÁN Administration Trazodone HCl 50 mg 05/23/20 21:02 Trazodone Hcl 50 Mg Tablet PO BEDTIME PRN Insomnia Allergies Allergies Allergy/AdvReac Type Severity Reaction Status Date / Time No Known Allergies Allergy Verified 05/21/20 02:41 [No Known Allergies*] Assessment & Plan Assessment & Plan (1) Bipolar I, most recent episode manic, severe with psychotic behavior: Status: Acute Code(s): F31.2 - Bipolar disorder, current episode manic severe with psychotic features Assessment and Plan: CT same medications Education Skills Greater than 50% of the session was spent on counseling and/or coordination of care Patient educated on: diagnosis and medication risk/benefits Informed Consent: further education needed Reason for contiued inpatient stay Substantial Risk for: rapid decompensation
[2020-05-29] MEDS: traZODone HCL 100 MG TABLET 200 MG PO (20:58)
[2020-05-29] MEDS: Atorvastatin Calcium 40 MG TABLET PO (20:58)
[2020-05-29] MEDS: OLANZapine ODT 10 MG TAB.RAPDIS 20 MG TRANSLINGU (20:59)
[2020-05-29 22:00] VITALS: BP 128/75; PULSE 90; TEMP 36.2
[2020-05-30] MEDS: hydrOXYzine HCL 25 MG TABLET PO (02:09)
[2020-05-30] MEDS: traZODone HCL 50 MG TABLET PO (02:09)
[2020-05-30 06:26] VITALS: BP 120/82; PULSE 88; RESP 16; TEMP 36.3; O2SAT 100
[2020-05-30 08:55] VITALS: BP 120/82; PULSE 88
[2020-05-30] MEDS: OLANZapine 2.5 MG TABLET PO (08:55)
[2020-05-30] MEDS: OXcarbazepine 300 MG TABLET PO ×2 (08:55→21:40)
[2020-05-30] MEDS: lisinopriL 2.5 MG TABLET PO (08:55)
[2020-05-30] MEDS: Fluticasone/Vilanterol 100/25 BLST.W.DEV 1 PUFF INHALE (08:55)
[2020-05-30] MEDS: clonazePAM 0.5 MG TABLET PO ×2 (08:55→21:39)
--- NOTE | 2020-05-30 09:07 | PC.NURSE ---
3 day notice retracted with yesterday. social work aware.
--- NOTE | 2020-05-30 09:19 | HO.PSYCHPN ---
Subjective Subjective Date of Service: 05/30/20 Reason For Visit: BIPOLAR DISORDER Subjective Notes: Conditional Voluntary Interim History: Leora was more organized, though she was still religiously preoccupied. She is finding medications helpful. She reports that she slpet better last night and that she can see that she was not ready to go home. Her thinking is much more clear. Medication Compliance: Yes Side effects from medications: No Attending Groups: Intermittent Review of Systems Acute medical concerns: No Medical Review of Systems: unchanged Review of Systems Reports behavioral changes Psychiatric: Reports behavioral changes Mental Status Exam Mental Status Exam Patient Appearance: Well Grooomed Patient Orientation: Person, Place and Time Level of Consciousness: Awake Patient Behavior: Appropriate Mood Description: Anxious and Labile Affect Description: Anxious and Labile Patient Cognition Impaired: No Ability to Follow Directions: Fair Speech Pattern: Perseverating, Rambling and Pressured Memory Description: Episodic Impaired Hallucinations: None Delusions: Paranoid Ideation and Present (Of being ) Thought Content: positive for Circumstantial, positive for Loose Associations, positive for Disorganized, negative for Suicidal Ideation and negative for Homicidal Ideation Judgement: Fair Diagnostics Vital Signs (24Hr): Vital Signs - 24 hr 05/29/20 22:00 05/30/20 06:26 05/30/20 08:55 Temperature 97.1 F 97.3 F Pulse Rate 90 88 88 Respiratory Rate 16 Blood Pressure 128/75 120/82 120/82 Pulse Oximetry 100 Body Mass Index 36.5 Labs Results: 05/20/20 22:01 05/20/20 22:02 Medications Medications Current Medications Generic Name Dose Route Start Last Admin Trade Name Freq PRN Reason Stop Dose Admin Acetaminophen 650 mg 05/23/20 21:02 Acetaminophen 325 Mg Tablet PO Q6H PRN Headache/Pain Mild Scale (1-3) Al Hydroxide/Mg Hydroxide 30 ml 05/23/20 21:02 Magnesium Hydrox/Alum Hydrox 30 Ml Oral.Susp PO Q6H PRN Heartburn/Nausea Albuterol Sulfate 2.5 mg 05/21/20 02:43 Albuterol Sulfate (0.083%) 2.5 Mg/3 Ml Vial.Neb INHALE Q4H PRN wheezing Atorvastatin Calcium 40 mg 05/21/20 21:00 05/29/20 20:58 Atorvastatin Calcium 40 Mg Tablet PO 40 mg BEDTIME SEBASTIÁN Administration Benzocaine 1 lozenge 05/29/20 09:18 Throat Lozenge, Medicated Lozenge MUCOUS MEM Q2H PRN Sore Throat Clonazepam 0.5 mg 05/26/20 10:40 05/30/20 08:55 Clonazepam 0.5 Mg Tablet PO 0.5 mg BID SEBASTIÁN Administration Fluticasone/Vilanterol 1 puff 05/21/20 09:00 05/30/20 08:55 Fluticasone/Vilanterol 100/25 Blst.W.Dev INHALE 1 puff RDAILY SEBASTIÁN Administration Hydroxyzine HCl 25 mg 05/21/20 02:43 05/21/20 23:52 Hydroxyzine Hcl 25 Mg Tablet PO 25 mg TID PRN Administration anxiety Hydroxyzine HCl 25 mg 05/23/20 21:02 05/30/20 02:09 Hydroxyzine Hcl 25 Mg Tablet PO 25 mg BEDTIME PRN Administration Anxiety Lisinopril 2.5 mg 05/21/20 09:00 05/30/20 08:55 Lisinopril 2.5 Mg Tablet PO 2.5 mg DAILY SEBASTIÁN Administration Protocol Lorazepam 1 mg 05/27/20 14:32 05/27/20 18:41 Lorazepam 1 Mg Tablet PO 1 mg Q4H PRN Administration Anxiety Magnesium Hydroxide 30 ml 05/23/20 21:02 Milk Of Magnesia 30 Ml Oral.Susp PO DAILY PRN Constipation Naproxen 500 mg 05/24/20 10:31 05/27/20 13:34 Naproxen 500 Mg Tablet PO 500 mg BID PRN Administration Pain, Moderate (Pain Scale 4-6 Olanzapine 5 mg 05/22/20 13:00 05/28/20 07:00 Olanzapine Odt 10 Mg Tab.Rapdis TRANSLINGU 5 mg DAILY PRN Administration Agitation Olanzapine 2.5 mg 05/23/20 09:00 05/30/20 08:55 Olanzapine 2.5 Mg Tablet PO 2.5 mg DAILY SEBASTIÁN Administration Olanzapine 20 mg 05/29/20 21:00 05/29/20 20:59 Olanzapine Odt 10 Mg Tab.Rapdis TRANSLINGU 20 mg BEDTIME SEBASTIÁN Administration Oxcarbazepine 300 mg 05/22/20 21:00 05/30/20 08:55 Oxcarbazepine 300 Mg Tablet PO 300 mg BID SEBASTIÁN Administration Trazodone HCl 200 mg 05/21/20 21:00 05/29/20 20:58 Trazodone Hcl 100 Mg Tablet PO 200 mg BEDTIME SEBASTIÁN Administration Trazodone HCl 50 mg 05/23/20 21:02 05/30/20 02:09 Trazodone Hcl 50 Mg Tablet PO 50 mg BEDTIME PRN Administration Insomnia Allergies Allergies Allergy/AdvReac Type Severity Reaction Status Date / Time No Known Allergies Allergy Verified 05/21/20 02:41 [No Known Allergies*] Assessment & Plan Assessment & Plan (1) Bipolar I, most recent episode manic, severe with psychotic behavior: Status: Acute Code(s): F31.2 - Bipolar disorder, current episode manic severe with psychotic features Assessment and Plan: CT medication without change. Monitor response Greater than 50% of the session was spent on counseling and/or coordination of care Patient educated on: diagnosis and medication risk/benefits Informed Consent: further education needed Reason for contiued inpatient stay Substantial Risk for: rapid decompensation
[2020-05-30] MEDS: OLANZapine ODT 10 MG TAB.RAPDIS 20 MG TRANSLINGU (21:40)
[2020-05-30] MEDS: Atorvastatin Calcium 40 MG TABLET PO (21:40)
[2020-05-30] MEDS: traZODone HCL 100 MG TABLET 200 MG PO (21:40)
[2020-05-30 21:51] VITALS: BP 130/72; PULSE 97; TEMP 36.3
[2020-05-31 06:35] VITALS: BP 128/82; PULSE 84; RESP 18; TEMP 36
[2020-05-31 09:02] VITALS: BP 128/82; PULSE 84
[2020-05-31] MEDS: clonazePAM 0.5 MG TABLET PO (09:02)
[2020-05-31] MEDS: lisinopriL 2.5 MG TABLET PO (09:02)
[2020-05-31] MEDS: OXcarbazepine 300 MG TABLET PO ×2 (09:02→21:41)
[2020-05-31] MEDS: OLANZapine 2.5 MG TABLET PO (09:02)
[2020-05-31] MEDS: Fluticasone/Vilanterol 100/25 BLST.W.DEV 1 PUFF INHALE (09:03)
[2020-05-31 18:52] VITALS: BP 139/92; PULSE 108; TEMP 36.3
[2020-05-31] MEDS: traZODone HCL 100 MG TABLET 200 MG PO (21:36)
[2020-05-31] MEDS: Atorvastatin Calcium 40 MG TABLET PO (21:36)
[2020-05-31] MEDS: OLANZapine ODT 10 MG TAB.RAPDIS 20 MG TRANSLINGU (21:37)
[2020-05-31] MEDS: Acetaminophen 325 MG TABLET 650 MG PO (21:43)
--- NOTE | 2020-05-31 23:13 | HO.PSYCHPN ---
Subjective Subjective Reason For Visit: BIPOLAR DISORDER Subjective Notes: Conditional Voluntary Interim History: improved mood in thinking excepting of medication Medication Compliance: Yes Review of Systems Reports behavioral changes Psychiatric: Reports behavioral changes Mental Status Exam Mental Status Exam Patient Appearance: Well Grooomed Patient Orientation: Person, Place and Time Level of Consciousness: Awake Patient Behavior: Appropriate Mood Description: Anxious and Labile Affect Description: Anxious and Labile Patient Cognition Impaired: No Ability to Follow Directions: Good Speech Pattern: Perseverating and Pressured Memory Description: Episodic Impaired Hallucinations: None Delusions: Paranoid Ideation ( resolving) and Present (Of being ) Thought Content: positive for Circumstantial, negative for Suicidal Ideation and negative for Homicidal Ideation Judgement: Fair Diagnostics Vital Signs (24Hr): Vital Signs - 24 hr 05/31/20 06:35 05/31/20 09:02 05/31/20 18:52 Temperature 96.8 F 97.4 F Pulse Rate 84 84 108 H Respiratory Rate 18 Blood Pressure 128/82 128/82 139/92 H Body Mass Index 36.5 Labs Results: 05/20/20 22:01 05/20/20 22:02 Medications Medications Current Medications Generic Name Dose Route Start Last Admin Trade Name Freq PRN Reason Stop Dose Admin Acetaminophen 650 mg 05/23/20 21:02 05/31/20 21:43 Acetaminophen 325 Mg Tablet PO 650 mg Q6H PRN Administration Headache/Pain Mild Scale (1-3) Al Hydroxide/Mg Hydroxide 30 ml 05/23/20 21:02 Magnesium Hydrox/Alum Hydrox 30 Ml Oral.Susp PO Q6H PRN Heartburn/Nausea Albuterol Sulfate 2.5 mg 05/21/20 02:43 Albuterol Sulfate (0.083%) 2.5 Mg/3 Ml Vial.Neb INHALE Q4H PRN wheezing Atorvastatin Calcium 40 mg 05/21/20 21:00 05/31/20 21:36 Atorvastatin Calcium 40 Mg Tablet PO 40 mg BEDTIME SEBASTIÁN Administration Benzocaine 1 lozenge 05/29/20 09:18 Throat Lozenge, Medicated Lozenge MUCOUS MEM Q2H PRN Sore Throat Fluticasone/Vilanterol 1 puff 05/21/20 09:00 05/31/20 09:03 Fluticasone/Vilanterol 100/25 Blst.W.Dev INHALE 1 puff RDAILY SEBASTIÁN Administration Hydroxyzine HCl 25 mg 10/07/20 02:43 05/21/20 23:52 Hydroxyzine Hcl 25 Mg Tablet PO 25 mg TID PRN Administration anxiety Hydroxyzine HCl 25 mg 05/23/20 21:02 05/30/20 02:09 Hydroxyzine Hcl 25 Mg Tablet PO 25 mg BEDTIME PRN Administration Anxiety Lisinopril 2.5 mg 05/21/20 09:00 05/31/20 09:02 Lisinopril 2.5 Mg Tablet PO 2.5 mg DAILY SEBASTIÁN Administration Protocol Lorazepam 1 mg 05/27/20 14:32 05/27/20 18:41 Lorazepam 1 Mg Tablet PO 1 mg Q4H PRN Administration Anxiety Magnesium Hydroxide 30 ml 05/23/20 21:02 Milk Of Magnesia 30 Ml Oral.Susp PO DAILY PRN Constipation Naproxen 500 mg 05/24/20 10:31 05/27/20 13:34 Naproxen 500 Mg Tablet PO 500 mg BID PRN Administration Pain, Moderate (Pain Scale 4-6 Olanzapine 5 mg 05/22/20 13:00 05/28/20 07:00 Olanzapine Odt 10 Mg Tab.Rapdis TRANSLINGU 5 mg DAILY PRN Administration Agitation Olanzapine 2.5 mg 05/23/20 09:00 05/31/20 09:02 Olanzapine 2.5 Mg Tablet PO 2.5 mg DAILY SEBASTIÁN Administration Olanzapine 20 mg 05/29/20 21:00 05/31/20 21:37 Olanzapine Odt 10 Mg Tab.Rapdis TRANSLINGU 20 mg BEDTIME SEBASTIÁN Administration Oxcarbazepine 300 mg 05/22/20 21:00 05/31/20 21:41 Oxcarbazepine 300 Mg Tablet PO 300 mg BID SEBASTIÁN Administration Trazodone HCl 200 mg 05/21/20 21:00 05/31/20 21:36 Trazodone Hcl 100 Mg Tablet PO 200 mg BEDTIME SEBASTIÁN Administration Trazodone HCl 50 mg 05/23/20 21:02 05/30/20 02:09 Trazodone Hcl 50 Mg Tablet PO 50 mg BEDTIME PRN Administration Insomnia Allergies Allergies Allergy/AdvReac Type Severity Reaction Status Date / Time No Known Allergies Allergy Verified 05/21/20 02:41 [No Known Allergies*] Assessment & Plan Assessment & Plan (1) Bipolar I, most recent episode manic, severe with psychotic behavior: Status: Acute Code(s): F31.2 - Bipolar disorder, current episode manic severe with psychotic features Assessment and Plan: continue medication patient stating he is starting to feel better Greater than 50% of the session was spent on counseling and/or coordination of care
[2020-06-01 06:15] VITALS: BP 119/76; PULSE 92; RESP 16; TEMP 35.8
[2020-06-01 09:49] VITALS: BP 119/76; PULSE 92
[2020-06-01] MEDS: lisinopriL 2.5 MG TABLET PO (09:49)
[2020-06-01] MEDS: OLANZapine 2.5 MG TABLET PO (09:49)
[2020-06-01] MEDS: OXcarbazepine 300 MG TABLET PO (09:49)
[2020-06-01] MEDS: Throat Lozenge, Medicated LOZENGE 1 LOZENGE MUCOUS MEM (09:52)
[2020-06-01] MEDS: Fluticasone/Vilanterol 100/25 BLST.W.DEV 1 PUFF INHALE (10:29)
[2020-06-01] MEDS: Acetaminophen 325 MG TABLET 650 MG PO ×2 (10:30→17:02)
[2020-06-01 16:50] VITALS: BP 140/74; PULSE 100; TEMP 36
[2020-06-01] MEDS: traZODone HCL 100 MG TABLET 200 MG PO (22:05)
[2020-06-01] MEDS: Atorvastatin Calcium 40 MG TABLET PO (22:05)
--- NOTE | 2020-06-01 23:14 | HO.PSYCHPN ---
Subjective Subjective Reason For Visit: BIPOLAR DISORDER Subjective Notes: Conditional Voluntary Interim History: Pt seems less manic less paranoid Medication Compliance: Yes Side effects from medications: No Review of Systems Reports behavioral changes Psychiatric: Reports behavioral changes Mental Status Exam Mental Status Exam Patient Appearance: Well Grooomed Patient Orientation: Person, Place, Time and Situation Level of Consciousness: Awake Patient Behavior: Appropriate Mood Description: Calm, Blunted and Apprehensive Affect Description: Suspicious Hallucinations: None (denies ) Delusions: Not Present (denies ) Thought Process: Intact and Goal Oriented Thought Content: positive for Poverty of Content Diagnostics Vital Signs (24Hr): Vital Signs - 24 hr 06/01/20 06:15 06/01/20 09:49 06/01/20 16:50 Temperature 96.4 F L 96.8 F Pulse Rate 92 92 100 Respiratory Rate 16 Blood Pressure 119/76 119/76 140/74 H Body Mass Index 36.5 Labs Results: 05/20/20 22:01 05/20/20 22:02 Medications Medications Current Medications Generic Name Dose Route Start Last Admin Trade Name Freq PRN Reason Stop Dose Admin Acetaminophen 650 mg 05/23/20 21:02 06/01/20 17:02 Acetaminophen 325 Mg Tablet PO 650 mg Q6H PRN Administration Headache/Pain Mild Scale (1-3) Al Hydroxide/Mg Hydroxide 30 ml 05/23/20 21:02 Magnesium Hydrox/Alum Hydrox 30 Ml Oral.Susp PO Q6H PRN Heartburn/Nausea Albuterol Sulfate 2.5 mg 05/21/20 02:43 Albuterol Sulfate (0.083%) 2.5 Mg/3 Ml Vial.Neb INHALE Q4H PRN wheezing Atorvastatin Calcium 40 mg 05/21/20 21:00 06/01/20 22:05 Atorvastatin Calcium 40 Mg Tablet PO 40 mg BEDTIME SEBASTIÁN Administration Benzocaine 1 lozenge 05/29/20 09:18 06/01/20 09:52 Throat Lozenge, Medicated Lozenge MUCOUS MEM 1 lozenge Q2H PRN Administration Sore Throat Fluticasone/Vilanterol 1 puff 05/21/20 09:00 06/01/20 10:29 Fluticasone/Vilanterol 100/25 Blst.W.Dev INHALE 1 puff RDAILY SEBASTIÁN Administration Hydroxyzine HCl 25 mg 05/21/20 02:43 05/21/20 23:52 Hydroxyzine Hcl 25 Mg Tablet PO 25 mg TID PRN Administration anxiety Hydroxyzine HCl 25 mg 05/23/20 21:02 05/30/20 02:09 Hydroxyzine Hcl 25 Mg Tablet PO 25 mg BEDTIME PRN Administration Anxiety Lisinopril 2.5 mg 05/21/20 09:00 06/01/20 09:49 Lisinopril 2.5 Mg Tablet PO 2.5 mg DAILY SEBASTIÁN Administration Protocol Lorazepam 1 mg 05/27/20 14:32 05/27/20 18:41 Lorazepam 1 Mg Tablet PO 1 mg Q4H PRN Administration Anxiety Magnesium Hydroxide 30 ml 05/23/20 21:02 Milk Of Magnesia 30 Ml Oral.Susp PO DAILY PRN Constipation Naproxen 500 mg 05/24/20 10:31 05/27/20 13:34 Naproxen 500 Mg Tablet PO 500 mg BID PRN Administration Pain, Moderate (Pain Scale 4-6 Olanzapine 5 mg 05/22/20 13:00 05/28/20 07:00 Olanzapine Odt 10 Mg Tab.Rapdis TRANSLINGU 5 mg DAILY PRN Administration Agitation Olanzapine 2.5 mg 05/23/20 09:00 06/01/20 09:49 Olanzapine 2.5 Mg Tablet PO 2.5 mg DAILY SEBASTIÁN Administration Olanzapine 20 mg 05/29/20 21:00 06/01/20 22:07 Olanzapine Odt 10 Mg Tab.Rapdis TRANSLINGU Not Given BEDTIME SEBASTIÁN Oxcarbazepine 300 mg 05/22/20 21:00 06/01/20 22:06 Oxcarbazepine 300 Mg Tablet PO Not Given BID SEBASTIÁN Trazodone HCl 200 mg 05/21/20 21:00 06/01/20 22:05 Trazodone Hcl 100 Mg Tablet PO 100 mg BEDTIME SEBASTIÁN Administration Trazodone HCl 50 mg 05/23/20 21:02 05/30/20 02:09 Trazodone Hcl 50 Mg Tablet PO 50 mg BEDTIME PRN Administration Insomnia Allergies Allergies Allergy/AdvReac Type Severity Reaction Status Date / Time No Known Allergies Allergy Verified 05/21/20 02:41 [No Known Allergies*] Assessment & Plan Assessment & Plan (1) Bipolar I, most recent episode manic, severe with psychotic behavior: Status: Acute Code(s): F31.2 - Bipolar disorder, current episode manic severe with psychotic features Assessment and Plan: ct tx plan no med change Greater than 50% of the session was spent on counseling and/or coordination of care Patient educated on: diagnosis and medication risk/benefits
[2020-06-02] MEDS: LORazepam 1 MG TABLET PO (02:48)
[2020-06-02] MEDS: NaPROXEN 500 MG TABLET PO (02:48)
[2020-06-02] MEDS: OLANZapine ODT 10 MG TAB.RAPDIS 5 MG TRANSLINGU (02:48)
[2020-06-02 06:12] VITALS: BP 111/56; PULSE 92; RESP 16; TEMP 36.1; O2SAT 100
[2020-06-02 08:53] VITALS: BP 111/56; PULSE 92
[2020-06-02] MEDS: OLANZapine 2.5 MG TABLET PO (08:53)
[2020-06-02] MEDS: lisinopriL 2.5 MG TABLET PO (08:53)
[2020-06-02] MEDS: OXcarbazepine 300 MG TABLET PO ×2 (08:53→23:13)
[2020-06-02] MEDS: Fluticasone/Vilanterol 100/25 BLST.W.DEV 1 PUFF INHALE (09:15)
--- NOTE | 2020-06-02 09:26 | P.PNPSI_ITS ---
Subjective Subjective Date of Service: 06/02/20 Reason For Visit: BIPOLAR DISORDER Subjective Notes: Conditional Voluntary Interim History: Leora did not recall not taking her medication last night. She reports that she is feeling well Medication Compliance: Intermittent Side effects from medications: No Attending Groups: Yes Review of Systems Acute medical concerns: No Medical Review of Systems: unchanged Review of Systems Reports behavioral changes Psychiatric: Reports behavioral changes Mental Status Exam Mental Status Exam Patient Appearance: Well Grooomed Patient Orientation: Person, Place and Time Level of Consciousness: Awake Patient Behavior: Appropriate Mood Description: Anxious and Labile Affect Description: Anxious and Labile Patient Cognition Impaired: No Ability to Follow Directions: Good Speech Pattern: Perseverating and Pressured Memory Description: Episodic Impaired Hallucinations: None Delusions: Paranoid Ideation ( resolving) and Present (Of being ) Thought Content: positive for Circumstantial, negative for Suicidal Ideation and negative for Homicidal Ideation Judgement: Fair Diagnostics Vital Signs (24Hr): Vital Signs - 24 hr 06/01/20 09:49 06/01/20 16:50 06/02/20 06:12 Temperature 96.8 F 97 F Pulse Rate 92 100 92 Respiratory Rate 16 Blood Pressure 119/76 140/74 H 111/56 L Pulse Oximetry 100 06/02/20 08:53 Temperature Pulse Rate 92 Respiratory Rate Blood Pressure 111/56 L Pulse Oximetry Body Mass Index 36.5 Labs Results: 05/20/20 22:01 05/20/20 22:02 Medications Medications Current Medications Generic Name Dose Route Start Last Admin Trade Name Freq PRN Reason Stop Dose Admin Acetaminophen 650 mg 05/23/20 21:02 06/01/20 17:02 Acetaminophen 325 Mg Tablet PO 650 mg Q6H PRN Administration Headache/Pain Mild Scale (1-3) Al Hydroxide/Mg Hydroxide 30 ml 05/23/20 21:02 Magnesium Hydrox/Alum Hydrox 30 Ml Oral.Susp PO Q6H PRN Heartburn/Nausea Albuterol Sulfate 2.5 mg 05/21/20 02:43 Albuterol Sulfate (0.083%) 2.5 Mg/3 Ml Vial.Neb INHALE Q4H PRN wheezing Atorvastatin Calcium 40 mg 05/21/20 21:00 06/01/20 22:05 Atorvastatin Calcium 40 Mg Tablet PO 40 mg BEDTIME SEBASTIÁN Administration Benzocaine 1 lozenge 05/29/20 09:18 06/01/20 09:52 Throat Lozenge, Medicated Lozenge MUCOUS MEM 1 lozenge Q2H PRN Administration Sore Throat Fluticasone/Vilanterol 1 puff 05/21/20 09:00 06/02/20 09:15 Fluticasone/Vilanterol 100/25 Blst.W.Dev INHALE 1 puff RDAILY SEBASTIÁN Administration Hydroxyzine HCl 25 mg 05/21/20 02:43 05/21/20 23:52 Hydroxyzine Hcl 25 Mg Tablet PO 25 mg TID PRN Administration anxiety Hydroxyzine HCl 25 mg 05/23/20 21:02 05/30/20 02:09 Hydroxyzine Hcl 25 Mg Tablet PO 25 mg BEDTIME PRN Administration Anxiety Lisinopril 2.5 mg 05/21/20 09:00 06/02/20 08:53 Lisinopril 2.5 Mg Tablet PO 2.5 mg DAILY SEBASTIÁN Administration Protocol Lorazepam 1 mg 05/27/20 14:32 06/02/20 02:48 Lorazepam 1 Mg Tablet PO 1 mg Q4H PRN Administration Anxiety Magnesium Hydroxide 30 ml 05/23/20 21:02 Milk Of Magnesia 30 Ml Oral.Susp PO DAILY PRN Constipation Naproxen 500 mg 05/24/20 10:31 06/02/20 02:48 Naproxen 500 Mg Tablet PO 500 mg BID PRN Administration Pain, Moderate (Pain Scale 4-6 Olanzapine 5 mg 05/22/20 13:00 06/02/20 02:48 Olanzapine Odt 10 Mg Tab.Rapdis TRANSLINGU 5 mg DAILY PRN Administration Agitation Olanzapine 2.5 mg 05/23/20 09:00 06/02/20 08:53 Olanzapine 2.5 Mg Tablet PO 2.5 mg DAILY SEBASTIÁN Administration Olanzapine 20 mg 05/29/20 21:00 06/01/20 22:07 Olanzapine Odt 10 Mg Tab.Rapdis TRANSLINGU Not Given BEDTIME SEBASTIÁN Oxcarbazepine 300 mg 05/22/20 21:00 06/02/20 08:53 Oxcarbazepine 300 Mg Tablet PO 300 mg BID SEBASTIÁN Administration Trazodone HCl 200 mg 05/21/20 21:00 06/01/20 22:05 Trazodone Hcl 100 Mg Tablet PO 100 mg BEDTIME SEBASTIÁN Administration Trazodone HCl 50 mg 05/23/20 21:02 05/30/20 02:09 Trazodone Hcl 50 Mg Tablet PO 50 mg BEDTIME PRN Administration Insomnia Allergies Allergies Allergy/AdvReac Type Severity Reaction Status Date / Time No Known Allergies Allergy Verified 05/21/20 02:41 [No Known Allergies*] Assessment & Plan Assessment & Plan (1) Bipolar I, most recent episode manic, severe with psychotic behavior: Status: Acute Code(s): F31.2 - Bipolar disorder, current episode manic severe with psychotic features Assessment and Plan: CT zyprexa and trileptal CT to monitor 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
[2020-06-02 20:02] VITALS: BP 124/60; PULSE 92; TEMP 33.3
[2020-06-02] MEDS: Acetaminophen 325 MG TABLET 650 MG PO (23:12)
[2020-06-02] MEDS: OLANZapine ODT 10 MG TAB.RAPDIS 20 MG TRANSLINGU (23:12)
[2020-06-02] MEDS: traZODone HCL 100 MG TABLET 200 MG PO (23:13)
[2020-06-02] MEDS: Atorvastatin Calcium 40 MG TABLET PO (23:13)
[2020-06-02] MEDS: HaloperidoL 5 MG TABLET PO (23:14)
[2020-06-03 05:25] VITALS: BP 124/79; PULSE 91; RESP 16; TEMP 36
[2020-06-03] MEDS: NaPROXEN 500 MG TABLET PO (05:26)
[2020-06-03] MEDS: LORazepam 1 MG TABLET PO (05:26)
[2020-06-03 09:18] VITALS: BP 124/79; PULSE 91
[2020-06-03] MEDS: OXcarbazepine 300 MG TABLET PO ×2 (09:18→21:56)
[2020-06-03] MEDS: OLANZapine 2.5 MG TABLET PO (09:18)
[2020-06-03] MEDS: lisinopriL 2.5 MG TABLET PO (09:18)
[2020-06-03] MEDS: Fluticasone/Vilanterol 100/25 BLST.W.DEV 1 PUFF INHALE (09:21)
--- NOTE | 2020-06-03 09:43 | HO.PSYCHPN ---
Subjective Subjective Date of Service: 06/03/20 Reason For Visit: BIPOLAR DISORDER Subjective Notes: Conditional Voluntary Interim History: Leora remains quite disorganized and labile. She had a difficult visit with her , and has been telling staff that she is not safe with knives. Staff have noted her to be delusional and responding to IS Medication Compliance: Yes Side effects from medications: No Attending Groups: Yes Review of Systems Acute medical concerns: No Medical Review of Systems: unchanged Review of Systems Reports behavioral changes Psychiatric: Reports behavioral changes Mental Status Exam Mental Status Exam Patient Appearance: Well Grooomed Patient Orientation: Person, Place and Time Level of Consciousness: Awake Patient Behavior: Appropriate and Good Eye Contact Mood Description: Anxious, Labile and Angry Affect Description: Anxious and Labile Patient Cognition Impaired: No Ability to Follow Directions: Good Speech Pattern: Perseverating and Pressured Memory Description: Episodic Impaired Hallucinations: None Delusions: Paranoid Ideation ( resolving) and Present (Of being ) Thought Process: Distracted and Goal Oriented Thought Content: positive for Circumstantial, negative for Suicidal Ideation and negative for Homicidal Ideation Judgement: Fair Diagnostics Vital Signs (24Hr): Vital Signs - 24 hr 06/02/20 20:02 06/03/20 05:25 06/03/20 09:18 Temperature 92 F L 96.8 F Pulse Rate 92 91 91 Respiratory Rate 16 Blood Pressure 124/60 124/79 124/79 Body Mass Index 36.5 Labs Results: 05/20/20 22:01 05/20/20 22:02 Medications Medications Current Medications Generic Name Dose Route Start Last Admin Trade Name Freq PRN Reason Stop Dose Admin Acetaminophen 650 mg 05/23/20 21:02 06/02/20 23:12 Acetaminophen 325 Mg Tablet PO 650 mg Q6H PRN Administration Headache/Pain Mild Scale (1-3) Al Hydroxide/Mg Hydroxide 30 ml 05/23/20 21:02 Magnesium Hydrox/Alum Hydrox 30 Ml Oral.Susp PO Q6H PRN Heartburn/Nausea Atorvastatin Calcium 40 mg 05/21/20 21:00 06/02/20 23:13 Atorvastatin Calcium 40 Mg Tablet PO 40 mg BEDTIME SEBASTIÁN Administration Benzocaine 1 lozenge 05/29/20 09:18 06/01/20 09:52 Throat Lozenge, Medicated Lozenge MUCOUS MEM 1 lozenge Q2H PRN Administration Sore Throat Fluticasone/Vilanterol 1 puff 10/07/20 09:00 06/03/20 09:21 Fluticasone/Vilanterol 100/25 Blst.W.Dev INHALE 1 puff RDAILY SEBASTIÁN Administration Haloperidol 5 mg 06/02/20 21:00 06/02/20 23:14 Haloperidol 5 Mg Tablet PO 5 mg BEDTIME SEBASTIÁN Administration Hydroxyzine HCl 25 mg 05/21/20 02:43 05/21/20 23:52 Hydroxyzine Hcl 25 Mg Tablet PO 25 mg TID PRN Administration anxiety Hydroxyzine HCl 25 mg 05/23/20 21:02 05/30/20 02:09 Hydroxyzine Hcl 25 Mg Tablet PO 25 mg BEDTIME PRN Administration Anxiety Lisinopril 2.5 mg 05/21/20 09:00 06/03/20 09:18 Lisinopril 2.5 Mg Tablet PO 2.5 mg DAILY SEBASTIÁN Administration Protocol Lorazepam 1 mg 05/27/20 14:32 06/03/20 05:26 Lorazepam 1 Mg Tablet PO 1 mg Q4H PRN Administration Anxiety Magnesium Hydroxide 30 ml 05/23/20 21:02 Milk Of Magnesia 30 Ml Oral.Susp PO DAILY PRN Constipation Naproxen 500 mg 05/24/20 10:31 06/03/20 05:26 Naproxen 500 Mg Tablet PO 500 mg BID PRN Administration Pain, Moderate (Pain Scale 4-6 Olanzapine 5 mg 05/22/20 13:00 06/02/20 02:48 Olanzapine Odt 10 Mg Tab.Rapdis TRANSLINGU 5 mg DAILY PRN Administration Agitation Olanzapine 2.5 mg 05/23/20 09:00 06/03/20 09:18 Olanzapine 2.5 Mg Tablet PO 2.5 mg DAILY SEBASTIÁN Administration Olanzapine 20 mg 05/29/20 21:00 06/02/20 23:12 Olanzapine Odt 10 Mg Tab.Rapdis TRANSLINGU 20 mg BEDTIME SEBASTIÁN Administration Oxcarbazepine 300 mg 05/22/20 21:00 06/03/20 09:18 Oxcarbazepine 300 Mg Tablet PO 300 mg BID SEBASTIÁN Administration Trazodone HCl 200 mg 05/21/20 21:00 06/02/20 23:13 Trazodone Hcl 100 Mg Tablet PO 200 mg BEDTIME SEBASTIÁN Administration Trazodone HCl 50 mg 05/23/20 21:02 05/30/20 02:09 Trazodone Hcl 50 Mg Tablet PO 50 mg BEDTIME PRN Administration Insomnia Allergies Allergies Allergy/AdvReac Type Severity Reaction Status Date / Time No Known Allergies Allergy Verified 05/21/20 02:41 [No Known Allergies*] Assessment & Plan Assessment & Plan (1) Bipolar I, most recent episode manic, severe with psychotic behavior: Status: Acute Code(s): F31.2 - Bipolar disorder, current episode manic severe with psychotic features Assessment and Plan: CT zyprexa and trileptal CT to monitor 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
[2020-06-03 19:06] VITALS: BP 127/67; PULSE 92; TEMP 35.8
[2020-06-03] MEDS: OLANZapine ODT 10 MG TAB.RAPDIS 20 MG TRANSLINGU (21:56)
[2020-06-03] MEDS: traZODone HCL 100 MG TABLET 200 MG PO (21:57)
[2020-06-03] MEDS: Atorvastatin Calcium 40 MG TABLET PO (21:58)
[2020-06-03] MEDS: HaloperidoL 5 MG TABLET 10 MG PO (21:58)
[2020-06-03] MEDS: Benztropine Mesylate 1 MG TABLET PO (21:58)
[2020-06-04 04:10] VITALS: BP 121/69; PULSE 90; RESP 16; TEMP 35.9
[2020-06-04] MEDS: Acetaminophen 325 MG TABLET 650 MG PO ×2 (04:37→11:48)
[2020-06-04 09:26] VITALS: BP 121/69; PULSE 90
[2020-06-04] MEDS: OXcarbazepine 300 MG TABLET PO ×2 (09:26→21:59)
[2020-06-04] MEDS: OLANZapine 2.5 MG TABLET PO (09:26)
[2020-06-04] MEDS: lisinopriL 2.5 MG TABLET PO (09:26)
[2020-06-04] MEDS: Fluticasone/Vilanterol 100/25 BLST.W.DEV 1 PUFF INHALE (09:28)
--- NOTE | 2020-06-04 12:58 | HO.PSYCHPN ---
Subjective Subjective Date of Service: 06/04/20 Reason For Visit: BIPOLAR DISORDER Subjective Notes: Conditional Voluntary Interim History: Leora remains quite disorganized and labile. She did sleep better last night and she is slightly clearer. She spoke about wanting to see her gonzález that she does not feel safe when she is not with him. Medication Compliance: Yes Side effects from medications: No Attending Groups: Yes Review of Systems Acute medical concerns: No Medical Review of Systems: unchanged Review of Systems Reports behavioral changes Psychiatric: Reports behavioral changes Mental Status Exam Mental Status Exam Patient Appearance: Well Grooomed Patient Orientation: Person, Place and Time Level of Consciousness: Awake Patient Behavior: Appropriate and Good Eye Contact Mood Description: Anxious, Labile and Angry Affect Description: Anxious and Labile Patient Cognition Impaired: No Ability to Follow Directions: Good Speech Pattern: Perseverating and Pressured Memory Description: Episodic Impaired Hallucinations: None Delusions: Paranoid Ideation ( resolving) and Present Thought Process: Distracted and Goal Oriented Thought Content: positive for Circumstantial, negative for Suicidal Ideation and negative for Homicidal Ideation Judgement: Fair Diagnostics Vital Signs (24Hr): Vital Signs - 24 hr 06/03/20 19:06 06/04/20 04:10 06/04/20 09:26 Temperature 96.5 F L 96.6 F L Pulse Rate 92 90 90 Respiratory Rate 16 Blood Pressure 127/67 121/69 121/69 Body Mass Index 36.5 Labs Results: 05/20/20 22:01 05/20/20 22:02 Medications Medications Current Medications Generic Name Dose Route Start Last Admin Trade Name Freq PRN Reason Stop Dose Admin Acetaminophen 650 mg 05/23/20 21:02 06/04/20 11:48 Acetaminophen 325 Mg Tablet PO 650 mg Q6H PRN Administration Headache/Pain Mild Scale (1-3) Al Hydroxide/Mg Hydroxide 30 ml 05/23/20 21:02 Magnesium Hydrox/Alum Hydrox 30 Ml Oral.Susp PO Q6H PRN Heartburn/Nausea Atorvastatin Calcium 40 mg 05/21/20 21:00 06/03/20 21:58 Atorvastatin Calcium 40 Mg Tablet PO 40 mg BEDTIME SEBASTIÁN Administration Benzocaine 1 lozenge 05/29/20 09:18 06/01/20 09:52 Throat Lozenge, Medicated Lozenge MUCOUS MEM 1 lozenge Q2H PRN Administration Sore Throat Benztropine Mesylate 1 mg 06/03/20 21:00 06/03/20 21:58 Benztropine Mesylate 1 Mg Tablet PO 1 mg BEDTIME SEBASTIÁN Administration Fluticasone/Vilanterol 1 puff 05/21/20 09:00 06/04/20 09:28 Fluticasone/Vilanterol 100/25 Blst.W.Dev INHALE 1 puff RDAILY SEBASTIÁN Administration Haloperidol 10 mg 06/03/20 21:00 06/03/20 21:58 Haloperidol 5 Mg Tablet PO 10 mg BEDTIME SEBASTIÁN Administration Hydroxyzine HCl 25 mg 05/21/20 02:43 05/21/20 23:52 Hydroxyzine Hcl 25 Mg Tablet PO 25 mg TID PRN Administration anxiety Hydroxyzine HCl 25 mg 05/23/20 21:02 05/30/20 02:09 Hydroxyzine Hcl 25 Mg Tablet PO 25 mg BEDTIME PRN Administration Anxiety Lisinopril 2.5 mg 05/21/20 09:00 06/04/20 09:26 Lisinopril 2.5 Mg Tablet PO 2.5 mg DAILY SEBASTIÁN Administration Protocol Lorazepam 1 mg 05/27/20 14:32 06/03/20 05:26 Lorazepam 1 Mg Tablet PO 1 mg Q4H PRN Administration Anxiety Magnesium Hydroxide 30 ml 05/23/20 21:02 Milk Of Magnesia 30 Ml Oral.Susp PO DAILY PRN Constipation Naproxen 500 mg 05/24/20 10:31 06/03/20 05:26 Naproxen 500 Mg Tablet PO 500 mg BID PRN Administration Pain, Moderate (Pain Scale 4-6 Olanzapine 5 mg 05/22/20 13:00 06/02/20 02:48 Olanzapine Odt 10 Mg Tab.Rapdis TRANSLINGU 5 mg DAILY PRN Administration Agitation Olanzapine 2.5 mg 05/23/20 09:00 06/04/20 09:26 Olanzapine 2.5 Mg Tablet PO 2.5 mg DAILY SEBASTIÁN Administration Olanzapine 20 mg 05/29/20 21:00 06/03/20 21:56 Olanzapine Odt 10 Mg Tab.Rapdis TRANSLINGU 20 mg BEDTIME SEBASTIÁN Administration Oxcarbazepine 300 mg 05/22/20 21:00 06/04/20 09:26 Oxcarbazepine 300 Mg Tablet PO 300 mg BID SEBASTIÁN Administration Trazodone HCl 200 mg 05/21/20 21:00 06/03/20 21:57 Trazodone Hcl 100 Mg Tablet PO 200 mg BEDTIME SEBASTIÁN Administration Trazodone HCl 50 mg 05/23/20 21:02 05/30/20 02:09 Trazodone Hcl 50 Mg Tablet PO 50 mg BEDTIME PRN Administration Insomnia Allergies Allergies Allergy/AdvReac Type Severity Reaction Status Date / Time No Known Allergies Allergy Verified 05/21/20 02:41 [No Known Allergies*] Assessment & Plan Assessment & Plan (1) Bipolar I, most recent episode manic, severe with psychotic behavior: Status: Acute Code(s): F31.2 - Bipolar disorder, current episode manic severe with psychotic features Assessment and Plan: CT medications without change Greater than 50% of the session was spent on counseling and/or coordination of care Patient educated on: diagnosis and medication risk/benefits Informed Consent: does not understand Reason for contiued inpatient stay Substantial Risk for: rapid decompensation
[2020-06-04] MEDS: LORazepam 1 MG TABLET PO (19:07)
[2020-06-04] MEDS: OLANZapine ODT 10 MG TAB.RAPDIS 5 MG TRANSLINGU (19:07)
[2020-06-04 19:20] VITALS: BP 134/87; PULSE 103; TEMP 36.6
[2020-06-04] MEDS: HaloperidoL 5 MG TABLET 10 MG PO (21:59)
[2020-06-04] MEDS: traZODone HCL 100 MG TABLET 200 MG PO (22:00)
[2020-06-04] MEDS: Atorvastatin Calcium 40 MG TABLET PO (22:00)
[2020-06-04] MEDS: OLANZapine ODT 10 MG TAB.RAPDIS 20 MG TRANSLINGU (22:00)
[2020-06-04] MEDS: Benztropine Mesylate 1 MG TABLET PO (22:01)
[2020-06-05 06:10] VITALS: BP 134/87; PULSE 99; RESP 18; TEMP 35.8
[2020-06-05] MEDS: Acetaminophen 325 MG TABLET 650 MG PO ×2 (06:25→15:58)
[2020-06-05] MEDS: OXcarbazepine 300 MG TABLET PO (08:32)
[2020-06-05 08:33] VITALS: BP 134/87; PULSE 99
[2020-06-05] MEDS: lisinopriL 2.5 MG TABLET PO (08:33)
[2020-06-05] MEDS: OLANZapine 2.5 MG TABLET PO (08:34)
[2020-06-05] MEDS: Fluticasone/Vilanterol 100/25 BLST.W.DEV 1 PUFF INHALE (08:37)
--- NOTE | 2020-06-05 09:33 | HO.PSYCHPN ---
Subjective Subjective Date of Service: 06/06/20 Reason For Visit: BIPOLAR DISORDER Subjective Notes: Conditional Voluntary Interim History: Leora slept better last night Her AH are less and she is more organized in her speech She and her met this morning and she said that he is starting to think that she is well enough to go home Medication Compliance: Yes Side effects from medications: No Attending Groups: Yes Review of Systems Acute medical concerns: No Medical Review of Systems: unchanged Review of Systems Reports behavioral changes Psychiatric: Reports behavioral changes Mental Status Exam Mental Status Exam Patient Appearance: Well Grooomed Patient Orientation: Person, Place and Time Level of Consciousness: Awake Patient Behavior: Appropriate and Good Eye Contact Mood Description: Anxious Affect Description: Anxious Patient Cognition Impaired: No Ability to Follow Directions: Good Speech Pattern: Perseverating Memory Description: Intact Hallucinations: None Delusions: Not Present Thought Process: Distracted and Goal Oriented Thought Content: positive for Circumstantial, negative for Suicidal Ideation and negative for Homicidal Ideation Judgement: Fair Diagnostics Vital Signs (24Hr): Vital Signs - 24 hr 06/04/20 19:20 06/05/20 06:10 06/05/20 08:33 Temperature 97.8 F 96.4 F L Pulse Rate 103 H 99 99 Respiratory Rate 18 Blood Pressure 134/87 134/87 134/87 Body Mass Index 36.5 Labs Results: 05/20/20 22:01 05/20/20 22:02 Medications Medications Current Medications Generic Name Dose Route Start Last Admin Trade Name Freq PRN Reason Stop Dose Admin Acetaminophen 650 mg 05/23/20 21:02 06/05/20 06:25 Acetaminophen 325 Mg Tablet PO 650 mg Q6H PRN Administration Headache/Pain Mild Scale (1-3) Al Hydroxide/Mg Hydroxide 30 ml 05/23/20 21:02 Magnesium Hydrox/Alum Hydrox 30 Ml Oral.Susp PO Q6H PRN Heartburn/Nausea Atorvastatin Calcium 40 mg 05/21/20 21:00 06/04/20 22:00 Atorvastatin Calcium 40 Mg Tablet PO 40 mg BEDTIME SEBASTIÁN Administration Benzocaine 1 lozenge 05/29/20 09:18 06/01/20 09:52 Throat Lozenge, Medicated Lozenge MUCOUS MEM 1 lozenge Q2H PRN Administration Sore Throat Benztropine Mesylate 1 mg 06/03/20 21:00 06/04/20 22:01 Benztropine Mesylate 1 Mg Tablet PO 1 mg BEDTIME SEBASTIÁN Administration Fluticasone/Vilanterol 1 puff 05/21/20 09:00 06/05/20 08:37 Fluticasone/Vilanterol 100/25 Blst.W.Dev INHALE 1 puff RDAILY SEBASTIÁN Administration Haloperidol 10 mg 06/03/20 21:00 06/04/20 21:59 Haloperidol 5 Mg Tablet PO 10 mg BEDTIME SEBASTIÁN Administration Hydroxyzine HCl 25 mg 05/21/20 02:43 05/21/20 23:52 Hydroxyzine Hcl 25 Mg Tablet PO 25 mg TID PRN Administration anxiety Hydroxyzine HCl 25 mg 05/23/20 21:02 05/30/20 02:09 Hydroxyzine Hcl 25 Mg Tablet PO 25 mg BEDTIME PRN Administration Anxiety Lisinopril 2.5 mg 05/21/20 09:00 06/05/20 08:33 Lisinopril 2.5 Mg Tablet PO 2.5 mg DAILY SEBASTIÁN Administration Protocol Lorazepam 1 mg 05/27/20 14:32 06/04/20 19:07 Lorazepam 1 Mg Tablet PO 1 mg Q4H PRN Administration Anxiety Magnesium Hydroxide 30 ml 05/23/20 21:02 Milk Of Magnesia 30 Ml Oral.Susp PO DAILY PRN Constipation Naproxen 500 mg 05/24/20 10:31 06/03/20 05:26 Naproxen 500 Mg Tablet PO 500 mg BID PRN Administration Pain, Moderate (Pain Scale 4-6 Olanzapine 5 mg 05/22/20 13:00 06/04/20 19:07 Olanzapine Odt 10 Mg Tab.Rapdis TRANSLINGU 5 mg DAILY PRN Administration Agitation Olanzapine 2.5 mg 05/23/20 09:00 06/05/20 08:34 Olanzapine 2.5 Mg Tablet PO 2.5 mg DAILY SEBASTIÁN Administration Olanzapine 20 mg 05/29/20 21:00 06/04/20 22:00 Olanzapine Odt 10 Mg Tab.Rapdis TRANSLINGU 20 mg BEDTIME SEBASTIÁN Administration Oxcarbazepine 300 mg 05/22/20 21:00 06/05/20 08:32 Oxcarbazepine 300 Mg Tablet PO 300 mg BID SEBASTIÁN Administration Trazodone HCl 200 mg 05/21/20 21:00 06/04/20 22:00 Trazodone Hcl 100 Mg Tablet PO 200 mg BEDTIME SEBASTIÁN Administration Trazodone HCl 50 mg 05/23/20 21:02 05/30/20 02:09 Trazodone Hcl 50 Mg Tablet PO 50 mg BEDTIME PRN Administration Insomnia Allergies Allergies Allergy/AdvReac Type Severity Reaction Status Date / Time No Known Allergies Allergy Verified 05/21/20 02:41 [No Known Allergies*] Assessment & Plan Assessment & Plan (1) Bipolar I, most recent episode manic, severe with psychotic behavior: Status: Acute Code(s): F31.2 - Bipolar disorder, current episode manic severe with psychotic features Greater than 50% of the session was spent on counseling and/or coordination of care Patient educated on: diagnosis and medication risk/benefits Informed Consent: further education needed Reason for contiued inpatient stay Substantial Risk for: inability to function and rapid decompensation
[2020-06-05 15:06] VITALS: BMI 37.6
[2020-06-05 18:42] VITALS: BP 128/68; PULSE 86; TEMP 36.1
[2020-06-05] MEDS: OLANZapine ODT 10 MG TAB.RAPDIS 20 MG TRANSLINGU (21:35)
[2020-06-05] MEDS: Atorvastatin Calcium 40 MG TABLET PO (21:36)
[2020-06-05] MEDS: traZODone HCL 100 MG TABLET 200 MG PO (21:36)
[2020-06-05] MEDS: OXcarbazepine 300 MG TABLET 600 MG PO (21:37)
[2020-06-05] MEDS: Benztropine Mesylate 1 MG TABLET PO (21:37)
[2020-06-05] MEDS: HaloperidoL 5 MG TABLET 10 MG PO (21:37)
[2020-06-06 06:08] VITALS: BP 126/78; PULSE 88; RESP 16; TEMP 36.2; O2SAT 100
[2020-06-06] MEDS: OXcarbazepine 300 MG TABLET 600 MG PO ×2 (08:22→21:13)
[2020-06-06] MEDS: OLANZapine 2.5 MG TABLET PO (08:22)
[2020-06-06] MEDS: Fluticasone/Vilanterol 100/25 BLST.W.DEV 1 PUFF INHALE (08:22)
[2020-06-06 08:23] VITALS: BP 126/78; PULSE 88
[2020-06-06] MEDS: lisinopriL 2.5 MG TABLET PO (08:23)
[2020-06-06] MEDS: Acetaminophen 325 MG TABLET 650 MG PO (10:53)
[2020-06-06 13:12] VITALS: BP 126/78; PULSE 88
[2020-06-06] MEDS: HaloperidoL 5 MG TABLET PO (13:47)
[2020-06-06] MEDS: Benztropine Mesylate 1 MG TABLET PO ×2 (13:47→21:14)
[2020-06-06] MEDS: LORazepam 1 MG TABLET PO (13:47)
[2020-06-06 18:26] VITALS: BP 132/83; PULSE 86; TEMP 36.1
[2020-06-06] MEDS: OLANZapine ODT 10 MG TAB.RAPDIS 20 MG TRANSLINGU (21:11)
[2020-06-06] MEDS: traZODone HCL 100 MG TABLET 200 MG PO (21:11)
[2020-06-06] MEDS: HaloperidoL 5 MG TABLET 10 MG PO (21:14)
[2020-06-06] MEDS: Atorvastatin Calcium 40 MG TABLET PO (21:14)
[2020-06-07] MEDS: OXcarbazepine 300 MG TABLET 600 MG PO ×2 (09:08→21:44)
[2020-06-07] MEDS: OLANZapine 2.5 MG TABLET PO (09:08)
[2020-06-07] MEDS: Fluticasone/Vilanterol 100/25 BLST.W.DEV 1 PUFF INHALE (09:09)
[2020-06-07 09:37] VITALS: BP 126/76; PULSE 107
[2020-06-07] MEDS: lisinopriL 2.5 MG TABLET PO (09:37)
[2020-06-07] MEDS: Acetaminophen 325 MG TABLET 650 MG PO (09:39)
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
[2020-06-07 18:24] VITALS: BP 130/78; PULSE 98; TEMP 36.1
--- NOTE | 2020-06-07 21:24 | HO.PSYCHPN ---
Subjective Subjective Date of Service: 06/06/20 Reason For Visit: BIPOLAR DISORDER Subjective Notes: Conditional Voluntary Interim History: Leora reporting left ear pain pain level 05/24 ad she reports it hurst to touch ear- has had ear infections in past. she is less psychotic and more organized reports feeling some anxiety but feeling hopeful Medication Compliance: Yes Side effects from medications: No Attending Groups: Yes Review of Systems Acute medical concerns: No Medical Review of Systems: unchanged Review of Systems Review of Systems no changes Yes all other systems are reviewed and are negative Reports behavioral changes Psychiatric: Reports behavioral changes Mental Status Exam Mental Status Exam Patient Appearance: Well Grooomed Patient Orientation: Person, Place and Time Level of Consciousness: Awake Patient Behavior: Appropriate and Good Eye Contact Mood Description: Anxious Affect Description: Anxious Patient Cognition Impaired: No Ability to Follow Directions: Good Speech Pattern: Perseverating Memory Description: Intact Hallucinations: None Delusions: Not Present Thought Process: Distracted and Goal Oriented Thought Content: positive for Circumstantial, negative for Suicidal Ideation and negative for Homicidal Ideation Judgement: Fair Diagnostics Vital Signs (24Hr): Vital Signs - 24 hr 06/07/20 09:37 06/07/20 18:24 Temperature 97 F Pulse Rate 107 H 98 Blood Pressure 126/76 130/78 Body Mass Index 37.6 Labs Results: 05/20/20 22:01 05/20/20 22:02 Medications Medications Current Medications Generic Name Dose Route Start Last Admin Trade Name Freq PRN Reason Stop Dose Admin Acetaminophen 650 mg 05/23/20 21:02 06/07/20 09:39 Acetaminophen 325 Mg Tablet PO 650 mg Q6H PRN Administration Headache/Pain Mild Scale (1-3) Al Hydroxide/Mg Hydroxide 30 ml 05/23/20 21:02 Magnesium Hydrox/Alum Hydrox 30 Ml Oral.Susp PO Q6H PRN Heartburn/Nausea Amoxicillin/Clavulanate Potassium 875 mg 06/07/20 21:15 Amoxicillin/Potassium Clav 875 Mg Tablet PO Q12H SEBASTIÁN Atorvastatin Calcium 40 mg 05/21/20 21:00 06/06/20 21:14 Atorvastatin Calcium 40 Mg Tablet PO 40 mg BEDTIME SEBASTIÁN Administration Benzocaine 1 lozenge 05/29/20 09:18 06/01/20 09:52 Throat Lozenge, Medicated Lozenge MUCOUS MEM 1 lozenge Q2H PRN Administration Sore Throat Benztropine Mesylate 1 mg 10/20/20 21:00 06/06/20 21:14 Benztropine Mesylate 1 Mg Tablet PO 1 mg BEDTIME SEBASTIÁN Administration Benztropine Mesylate 1 mg 06/05/20 17:03 06/06/20 13:47 Benztropine Mesylate 1 Mg Tablet PO 1 mg Q4H PRN Administration Extrapyramidal Effects Fluticasone/Vilanterol 1 puff 05/21/20 09:00 06/07/20 09:09 Fluticasone/Vilanterol 100/25 Blst.W.Dev INHALE 1 puff RDAILY SEBASTIÁN Administration Haloperidol 10 mg 06/03/20 21:00 06/06/20 21:14 Haloperidol 5 Mg Tablet PO 10 mg BEDTIME SEBASTIÁN Administration Haloperidol 5 mg 06/05/20 17:03 06/06/20 13:47 Haloperidol 5 Mg Tablet PO 5 mg Q4H PRN Administration anxiety/restlessness Hydroxyzine HCl 25 mg 05/21/20 02:43 05/21/20 23:52 Hydroxyzine Hcl 25 Mg Tablet PO 25 mg TID PRN Administration anxiety Hydroxyzine HCl 25 mg 05/23/20 21:02 05/30/20 02:09 Hydroxyzine Hcl 25 Mg Tablet PO 25 mg BEDTIME PRN Administration Anxiety Lisinopril 2.5 mg 05/21/20 09:00 06/07/20 09:37 Lisinopril 2.5 Mg Tablet PO 2.5 mg DAILY SEBASTIÁN Administration Protocol Lorazepam 1 mg 06/06/20 13:01 06/06/20 13:47 Lorazepam 1 Mg Tablet PO 1 mg Q4H PRN Administration Anxiety Magnesium Hydroxide 30 ml 05/23/20 21:02 Milk Of Magnesia 30 Ml Oral.Susp PO DAILY PRN Constipation Naproxen 500 mg 05/24/20 10:31 06/03/20 05:26 Naproxen 500 Mg Tablet PO 500 mg BID PRN Administration Pain, Moderate (Pain Scale 4-6 Olanzapine 5 mg 05/22/20 13:00 06/04/20 19:07 Olanzapine Odt 10 Mg Tab.Rapdis TRANSLINGU 5 mg DAILY PRN Administration Agitation Olanzapine 2.5 mg 05/23/20 09:00 06/07/20 09:08 Olanzapine 2.5 Mg Tablet PO 2.5 mg DAILY SEBASTIÁN Administration Olanzapine 20 mg 05/29/20 21:00 06/06/20 21:11 Olanzapine Odt 10 Mg Tab.Rapdis TRANSLINGU 20 mg BEDTIME SEBASTIÁN Administration Oxcarbazepine 600 mg 06/05/20 21:00 06/07/20 09:08 Oxcarbazepine 300 Mg Tablet PO 600 mg BID SEBASTIÁN Administration Trazodone HCl 200 mg 05/21/20 21:00 06/06/20 21:11 Trazodone Hcl 100 Mg Tablet PO 200 mg BEDTIME SEBASTIÁN Administration Trazodone HCl 50 mg 05/23/20 21:02 05/30/20 02:09 Trazodone Hcl 50 Mg Tablet PO 50 mg BEDTIME PRN Administration Insomnia Allergies Allergies Allergy/AdvReac Type Severity Reaction Status Date / Time No Known Allergies Allergy Verified 05/21/20 02:41 [No Known Allergies*] Assessment & Plan Assessment & Plan (1) Otitis media: Status: Acute Code(s): H66.90 - Otitis media, unspecified, unspecified ear (2) Bipolar I, most recent episode manic, severe with psychotic behavior: Status: Acute Code(s): F31.2 - Bipolar disorder, current episode manic severe with psychotic features Assessment and Plan: hospitalist consult ordered for ear pain continue current treatment plan Greater than 50% of the session was spent on counseling and/or coordination of care Patient educated on: diagnosis and medication risk/benefits Informed Consent: does not understand Reason for contiued inpatient stay Substantial Risk for: inability to function and med/psych decompensation Greater than 50% of the session was spent on counseling and/or coordination of care
[2020-06-07] MEDS: Benztropine Mesylate 1 MG TABLET PO (21:43)
[2020-06-07] MEDS: HaloperidoL 5 MG TABLET 10 MG PO (21:43)
[2020-06-07] MEDS: traZODone HCL 100 MG TABLET 200 MG PO (21:44)
[2020-06-07] MEDS: OLANZapine ODT 10 MG TAB.RAPDIS 20 MG TRANSLINGU (21:44)
[2020-06-07] MEDS: Atorvastatin Calcium 40 MG TABLET PO (21:45)
[2020-06-07] MEDS: Amoxicillin/Potassium Clav 875 MG TABLET PO (22:06)
[2020-06-08 07:31] VITALS: BP 123/73; PULSE 92; TEMP 35.7
[2020-06-08] MEDS: Amoxicillin/Potassium Clav 875 MG TABLET PO ×2 (08:46→20:56)
[2020-06-08] MEDS: OXcarbazepine 300 MG TABLET 600 MG PO ×2 (08:46→20:57)
[2020-06-08] MEDS: OLANZapine 2.5 MG TABLET PO (08:46)
[2020-06-08 08:48] VITALS: BP 149/79; PULSE 69
[2020-06-08] MEDS: lisinopriL 2.5 MG TABLET PO (08:48)
[2020-06-08] MEDS: Fluticasone/Vilanterol 100/25 BLST.W.DEV 1 PUFF INHALE (09:06)
--- NOTE | 2020-06-08 10:49 | HO.PSYCHPN ---
Subjective Subjective Date of Service: 06/06/20 Reason For Visit: BIPOLAR DISORDER Subjective Notes: Conditional Voluntary Interim History: Leora started on augmentin for ear infection she is less psychotic and more organized reports feeling some anxiety but feeling hopeful Medication Compliance: Yes Side effects from medications: No Attending Groups: Yes Review of Systems Acute medical concerns: No Medical Review of Systems: unchanged Review of Systems Review of Systems no changes Yes all other systems are reviewed and are negative Reports behavioral changes Psychiatric: Reports behavioral changes Comments: ear pain Reports behavioral changes Psychiatric: Reports behavioral changes Mental Status Exam Mental Status Exam Patient Appearance: Well Grooomed Patient Orientation: Person, Place and Time Level of Consciousness: Awake Patient Behavior: Appropriate and Good Eye Contact Mood Description: Anxious Affect Description: Anxious Patient Cognition Impaired: No Ability to Follow Directions: Good Speech Pattern: Perseverating Memory Description: Intact Hallucinations: None Delusions: Not Present Thought Process: Distracted and Goal Oriented Thought Content: positive for Circumstantial, negative for Suicidal Ideation and negative for Homicidal Ideation Judgement: Fair Diagnostics Vital Signs (24Hr): Vital Signs - 24 hr 06/07/20 18:24 06/08/20 07:31 06/08/20 08:48 Temperature 97 F 96.2 F L Pulse Rate 98 92 69 Blood Pressure 130/78 123/73 149/79 H Body Mass Index 37.6 Labs Results: 05/20/20 22:01 05/20/20 22:02 Medications Medications Current Medications Generic Name Dose Route Start Last Admin Trade Name Freq PRN Reason Stop Dose Admin Acetaminophen 650 mg 05/23/20 21:02 06/07/20 09:39 Acetaminophen 325 Mg Tablet PO 650 mg Q6H PRN Administration Headache/Pain Mild Scale (1-3) Al Hydroxide/Mg Hydroxide 30 ml 05/23/20 21:02 Magnesium Hydrox/Alum Hydrox 30 Ml Oral.Susp PO Q6H PRN Heartburn/Nausea Amoxicillin/Clavulanate Potassium 875 mg 06/07/20 22:00 06/08/20 08:46 Amoxicillin/Potassium Clav 875 Mg Tablet PO 875 mg Q12H SEBASTIÁN Administration Atorvastatin Calcium 40 mg 05/21/20 21:00 06/07/20 21:45 Atorvastatin Calcium 40 Mg Tablet PO 40 mg BEDTIME SEBASTIÁN Administration Benzocaine 1 lozenge 05/29/20 09:18 06/01/20 09:52 Throat Lozenge, Medicated Lozenge MUCOUS MEM 1 lozenge Q2H PRN Administration Sore Throat Benztropine Mesylate 1 mg 06/03/20 21:00 06/07/20 21:43 Benztropine Mesylate 1 Mg Tablet PO 1 mg BEDTIME SEBASTIÁN Administration Benztropine Mesylate 1 mg 06/05/20 17:03 06/06/20 13:47 Benztropine Mesylate 1 Mg Tablet PO 1 mg Q4H PRN Administration Extrapyramidal Effects Fluticasone/Vilanterol 1 puff 05/21/20 09:00 06/08/20 09:06 Fluticasone/Vilanterol 100/25 Blst.W.Dev INHALE 1 puff RDAILY SEBASTIÁN Administration Haloperidol 10 mg 06/03/20 21:00 06/07/20 21:43 Haloperidol 5 Mg Tablet PO 10 mg BEDTIME SEBASTIÁN Administration Haloperidol 5 mg 06/05/20 17:03 06/06/20 13:47 Haloperidol 5 Mg Tablet PO 5 mg Q4H PRN Administration anxiety/restlessness Hydroxyzine HCl 25 mg 05/21/20 02:43 05/21/20 23:52 Hydroxyzine Hcl 25 Mg Tablet PO 25 mg TID PRN Administration anxiety Hydroxyzine HCl 25 mg 05/23/20 21:02 05/30/20 02:09 Hydroxyzine Hcl 25 Mg Tablet PO 25 mg BEDTIME PRN Administration Anxiety Lisinopril 2.5 mg 05/21/20 09:00 06/08/20 08:48 Lisinopril 2.5 Mg Tablet PO 2.5 mg DAILY SEBASTIÁN Administration Protocol Lorazepam 1 mg 06/06/20 13:01 06/06/20 13:47 Lorazepam 1 Mg Tablet PO 1 mg Q4H PRN Administration Anxiety Magnesium Hydroxide 30 ml 05/23/20 21:02 Milk Of Magnesia 30 Ml Oral.Susp PO DAILY PRN Constipation Naproxen 500 mg 05/24/20 10:31 06/03/20 05:26 Naproxen 500 Mg Tablet PO 500 mg BID PRN Administration Pain, Moderate (Pain Scale 4-6 Olanzapine 5 mg 05/22/20 13:00 06/04/20 19:07 Olanzapine Odt 10 Mg Tab.Rapdis TRANSLINGU 5 mg DAILY PRN Administration Agitation Olanzapine 2.5 mg 05/23/20 09:00 06/08/20 08:46 Olanzapine 2.5 Mg Tablet PO 2.5 mg DAILY SEBASTIÁN Administration Olanzapine 20 mg 05/29/20 21:00 06/07/20 21:44 Olanzapine Odt 10 Mg Tab.Rapdis TRANSLINGU 20 mg BEDTIME SEBASTIÁN Administration Oxcarbazepine 600 mg 06/05/20 21:00 06/08/20 08:46 Oxcarbazepine 300 Mg Tablet PO 600 mg BID SEBASTIÁN Administration Trazodone HCl 200 mg 05/21/20 21:00 06/07/20 21:44 Trazodone Hcl 100 Mg Tablet PO 200 mg BEDTIME SEBASTIÁN Administration Trazodone HCl 50 mg 05/23/20 21:02 05/30/20 02:09 Trazodone Hcl 50 Mg Tablet PO 50 mg BEDTIME PRN Administration Insomnia Allergies Allergies Allergy/AdvReac Type Severity Reaction Status Date / Time No Known Allergies Allergy Verified 05/21/20 02:41 [No Known Allergies*] Assessment & Plan Assessment & Plan (1) Otitis media: Status: Acute Code(s): H66.90 - Otitis media, unspecified, unspecified ear (2) Bipolar I, most recent episode manic, severe with psychotic behavior: Status: Acute Code(s): F31.2 - Bipolar disorder, current episode manic severe with psychotic features Assessment and Plan: continue current treatment plan Greater than 50% of the session was spent on counseling and/or coordination of care Patient educated on: diagnosis and medication risk/benefits Informed Consent: does not understand Reason for contiued inpatient stay Substantial Risk for: inability to function and med/psych decompensation Greater than 50% of the session was spent on counseling and/or coordination of care
[2020-06-08 18:31] VITALS: BP 133/66; PULSE 97; TEMP 35.9
[2020-06-08] MEDS: OLANZapine ODT 10 MG TAB.RAPDIS 20 MG TRANSLINGU (20:55)
[2020-06-08] MEDS: Atorvastatin Calcium 40 MG TABLET PO (20:56)
[2020-06-08] MEDS: traZODone HCL 100 MG TABLET 200 MG PO (20:57)
[2020-06-08] MEDS: HaloperidoL 5 MG TABLET 10 MG PO (20:57)
[2020-06-08] MEDS: Benztropine Mesylate 1 MG TABLET PO (20:57)
[2020-06-09 06:25] VITALS: PULSE 85; RESP 16; TEMP 36
[2020-06-09] MEDS: Fluticasone/Vilanterol 100/25 BLST.W.DEV 1 PUFF INHALE (09:23)
[2020-06-09] MEDS: Amoxicillin/Potassium Clav 875 MG TABLET PO ×2 (09:24→21:58)
[2020-06-09] MEDS: OLANZapine 2.5 MG TABLET PO (09:24)
[2020-06-09 09:25] VITALS: BP 125/71; PULSE 85
[2020-06-09] MEDS: lisinopriL 2.5 MG TABLET PO (09:25)
[2020-06-09] MEDS: OXcarbazepine 300 MG TABLET 600 MG PO ×2 (09:26→21:58)
--- NOTE | 2020-06-09 09:42 | HO.PSYCHPN ---
Subjective Subjective Date of Service: 06/09/20 Reason For Visit: BIPOLAR DISORDER Subjective Notes: Conditional Voluntary Interim History: Leora started on augmentin for ear infection. This is resolving. She is not psychotic and more organized. She is anxious to go home. SW will speak with her and if he agrees that she is stabilized a DC will be planned. Medication Compliance: Yes Side effects from medications: No Attending Groups: Yes Review of Systems Acute medical concerns: No Ear infection is resolving Medical Review of Systems: unchanged Review of Systems Reports behavioral changes Psychiatric: Reports behavioral changes Mental Status Exam Mental Status Exam Patient Appearance: Well Grooomed Patient Orientation: Person, Place and Time Level of Consciousness: Awake Patient Behavior: Appropriate and Good Eye Contact Mood Description: Calm and Anxious Affect Description: Calm and Anxious Patient Cognition Impaired: No Ability to Follow Directions: Good Speech Pattern: Clear Memory Description: Intact Hallucinations: None Delusions: Not Present Thought Process: Goal Oriented Thought Content: positive for Circumstantial, negative for Suicidal Ideation and negative for Homicidal Ideation Judgement: Fair Diagnostics Vital Signs (24Hr): Vital Signs - 24 hr 06/08/20 18:31 06/09/20 06:25 06/09/20 09:25 Temperature 96.6 F L 96.8 F Pulse Rate 97 85 85 Respiratory Rate 16 Blood Pressure 133/66 125/71 Body Mass Index 37.6 Labs Results: 05/20/20 22:01 05/20/20 22:02 Medications Medications Current Medications Generic Name Dose Route Start Last Admin Trade Name Freq PRN Reason Stop Dose Admin Acetaminophen 650 mg 05/23/20 21:02 06/07/20 09:39 Acetaminophen 325 Mg Tablet PO 650 mg Q6H PRN Administration Headache/Pain Mild Scale (1-3) Al Hydroxide/Mg Hydroxide 30 ml 05/23/20 21:02 Magnesium Hydrox/Alum Hydrox 30 Ml Oral.Susp PO Q6H PRN Heartburn/Nausea Amoxicillin/Clavulanate Potassium 875 mg 06/07/20 22:00 06/09/20 09:24 Amoxicillin/Potassium Clav 875 Mg Tablet PO 875 mg Q12H SEBASTIÁN Administration Atorvastatin Calcium 40 mg 05/21/20 21:00 06/08/20 20:56 Atorvastatin Calcium 40 Mg Tablet PO 40 mg BEDTIME SEBASTIÁN Administration Benzocaine 1 lozenge 05/29/20 09:18 06/01/20 09:52 Throat Lozenge, Medicated Lozenge MUCOUS MEM 1 lozenge Q2H PRN Administration Sore Throat Benztropine Mesylate 1 mg 06/03/20 21:00 06/08/20 20:57 Benztropine Mesylate 1 Mg Tablet PO 1 mg BEDTIME SEBASTIÁN Administration Benztropine Mesylate 1 mg 06/05/20 17:03 06/06/20 13:47 Benztropine Mesylate 1 Mg Tablet PO 1 mg Q4H PRN Administration Extrapyramidal Effects Fluticasone/Vilanterol 1 puff 05/21/20 09:00 06/09/20 09:23 Fluticasone/Vilanterol 100/25 Blst.W.Dev INHALE 1 puff RDAILY SEBASTIÁN Administration Haloperidol 10 mg 06/03/20 21:00 06/08/20 20:57 Haloperidol 5 Mg Tablet PO 10 mg BEDTIME SEBASTIÁN Administration Haloperidol 5 mg 06/05/20 17:03 06/06/20 13:47 Haloperidol 5 Mg Tablet PO 5 mg Q4H PRN Administration anxiety/restlessness Hydroxyzine HCl 25 mg 05/21/20 02:43 05/21/20 23:52 Hydroxyzine Hcl 25 Mg Tablet PO 25 mg TID PRN Administration anxiety Hydroxyzine HCl 25 mg 05/23/20 21:02 05/30/20 02:09 Hydroxyzine Hcl 25 Mg Tablet PO 25 mg BEDTIME PRN Administration Anxiety Lisinopril 2.5 mg 05/21/20 09:00 06/09/20 09:25 Lisinopril 2.5 Mg Tablet PO 2.5 mg DAILY SEBASTIÁN Administration Protocol Lorazepam 1 mg 06/06/20 13:01 06/06/20 13:47 Lorazepam 1 Mg Tablet PO 1 mg Q4H PRN Administration Anxiety Magnesium Hydroxide 30 ml 05/23/20 21:02 Milk Of Magnesia 30 Ml Oral.Susp PO DAILY PRN Constipation Naproxen 500 mg 05/24/20 10:31 06/03/20 05:26 Naproxen 500 Mg Tablet PO 500 mg BID PRN Administration Pain, Moderate (Pain Scale 4-6 Olanzapine 5 mg 05/22/20 13:00 06/04/20 19:07 Olanzapine Odt 10 Mg Tab.Rapdis TRANSLINGU 5 mg DAILY PRN Administration Agitation Olanzapine 2.5 mg 05/23/20 09:00 06/09/20 09:24 Olanzapine 2.5 Mg Tablet PO 2.5 mg DAILY SEBASTIÁN Administration Olanzapine 20 mg 05/29/20 21:00 06/08/20 20:55 Olanzapine Odt 10 Mg Tab.Rapdis TRANSLINGU 20 mg BEDTIME SEBASTIÁN Administration Oxcarbazepine 600 mg 06/05/20 21:00 06/09/20 09:26 Oxcarbazepine 300 Mg Tablet PO 600 mg BID SEBASTIÁN Administration Trazodone HCl 200 mg 05/21/20 21:00 06/08/20 20:57 Trazodone Hcl 100 Mg Tablet PO 200 mg BEDTIME SEBASTIÁN Administration Trazodone HCl 50 mg 05/23/20 21:02 05/30/20 02:09 Trazodone Hcl 50 Mg Tablet PO 50 mg BEDTIME PRN Administration Insomnia Allergies Allergies Allergy/AdvReac Type Severity Reaction Status Date / Time No Known Allergies Allergy Verified 05/21/20 02:41 [No Known Allergies*] Assessment & Plan Assessment & Plan (1) Bipolar I, most recent episode manic, severe with psychotic behavior: Status: Acute Code(s): F31.2 - Bipolar disorder, current episode manic severe with psychotic features (2) Otitis media: Qualifiers: Otitis media type: unspecified Chronicity: acute Qualified Code(s): H66.90 - Otitis media, unspecified, unspecified ear Status: Acute Code(s): H66.90 - Otitis media, unspecified, unspecified ear Assessment and Plan: CT current treatment DC planning with anticipated DC 06/10/20 Greater than 50% of the session was spent on counseling and/or coordination of care Patient educated on: diagnosis and medication risk/benefits Informed Consent: understands Reason for contiued inpatient stay Substantial Risk for: rapid decompensation
[2020-06-09] MEDS: Throat Lozenge, Medicated LOZENGE 1 LOZENGE MUCOUS MEM (16:16)
[2020-06-09] MEDS: hydrOXYzine HCL 25 MG TABLET PO (16:16)
[2020-06-09] MEDS: Acetaminophen 325 MG TABLET 650 MG PO (16:28)
[2020-06-09 17:52] VITALS: BP 127/76; PULSE 86; TEMP 36.2
[2020-06-09] MEDS: NaPROXEN 500 MG TABLET PO (20:58)
[2020-06-09] MEDS: OLANZapine ODT 10 MG TAB.RAPDIS 20 MG TRANSLINGU (21:58)
[2020-06-09] MEDS: Benztropine Mesylate 1 MG TABLET PO (21:58)
[2020-06-09] MEDS: traZODone HCL 100 MG TABLET 200 MG PO (21:58)
[2020-06-09] MEDS: Atorvastatin Calcium 40 MG TABLET PO (21:58)
[2020-06-09] MEDS: HaloperidoL 5 MG TABLET 10 MG PO (21:58)
--- NOTE | 2020-06-10 05:13 | HO.PSYCHPN ---
Subjective Subjective Reason For Visit: BIPOLAR DISORDER Interim History: Leora started on augmentin for ear infection. This is resolving. She is not psychotic and more organized. She is anxious to go home. SW will speak with her and if he agrees that she is stabilized a DC will be planned. Defer DC to tomorrow Review of Systems Reports behavioral changes Psychiatric: Reports behavioral changes Mental Status Exam Mental Status Exam Narrative: Patient was sleeping, but per report she is bizarre, pressured, anxious, responding to internal stimuli, restless at times, hypersexual at times, disorganized with poor insight and judgment Patient Appearance: Well Grooomed Patient Orientation: Person, Place, Time and Situation Level of Consciousness: Awake Patient Behavior: Appropriate and Good Eye Contact Mood Description: Calm and Anxious Affect Description: Calm and Anxious Patient Cognition Impaired: No Ability to Follow Directions: Good Speech Pattern: Clear Memory Description: Intact Diagnostics Vital Signs (24Hr): Vital Signs - 24 hr 06/09/20 06:25 06/09/20 09:25 06/09/20 17:52 Temperature 96.8 F 97.1 F Pulse Rate 85 85 86 Respiratory Rate 16 Blood Pressure 125/71 127/76 Body Mass Index 37.6 Labs Results: 05/20/20 22:01 05/20/20 22:02 Medications Medications Current Medications Generic Name Dose Route Start Last Admin Trade Name Mesfinq PRN Reason Stop Dose Admin Acetaminophen 650 mg 05/23/20 21:02 06/09/20 16:28 Acetaminophen 325 Mg Tablet PO 650 mg Q6H PRN Administration Headache/Pain Mild Scale (1-3) Al Hydroxide/Mg Hydroxide 30 ml 05/23/20 21:02 Magnesium Hydrox/Alum Hydrox 30 Ml Oral.Susp PO Q6H PRN Heartburn/Nausea Amoxicillin/Clavulanate Potassium 875 mg 06/07/20 22:00 06/09/20 21:58 Amoxicillin/Potassium Clav 875 Mg Tablet PO 875 mg Q12H SEBASTIÁN Administration Atorvastatin Calcium 40 mg 05/21/20 21:00 06/09/20 21:58 Atorvastatin Calcium 40 Mg Tablet PO 40 mg BEDTIME SEBASTIÁN Administration Benzocaine 1 lozenge 05/29/20 09:18 06/09/20 16:16 Throat Lozenge, Medicated Lozenge MUCOUS MEM 1 lozenge Q2H PRN Administration Sore Throat Benztropine Mesylate 1 mg 06/03/20 21:00 06/09/20 21:58 Benztropine Mesylate 1 Mg Tablet PO 1 mg BEDTIME SEBASTIÁN Administration Benztropine Mesylate 1 mg 06/05/20 17:03 06/06/20 13:47 Benztropine Mesylate 1 Mg Tablet PO 1 mg Q4H PRN Administration Extrapyramidal Effects Fluticasone/Vilanterol 1 puff 05/21/20 09:00 06/09/20 09:23 Fluticasone/Vilanterol 100/25 Blst.W.Dev INHALE 1 puff RDAILY SEBASTIÁN Administration Haloperidol 10 mg 06/03/20 21:00 06/09/20 21:58 Haloperidol 5 Mg Tablet PO 10 mg BEDTIME SEBASTIÁN Administration Haloperidol 5 mg 06/05/20 17:03 06/06/20 13:47 Haloperidol 5 Mg Tablet PO 5 mg Q4H PRN Administration anxiety/restlessness Hydroxyzine HCl 25 mg 05/21/20 02:43 06/09/20 16:16 Hydroxyzine Hcl 25 Mg Tablet PO 25 mg TID PRN Administration anxiety Hydroxyzine HCl 25 mg 05/23/20 21:02 05/30/20 02:09 Hydroxyzine Hcl 25 Mg Tablet PO 25 mg BEDTIME PRN Administration Anxiety Lisinopril 2.5 mg 05/21/20 09:00 06/09/20 09:25 Lisinopril 2.5 Mg Tablet PO 2.5 mg DAILY SEBASTIÁN Administration Protocol Lorazepam 1 mg 06/06/20 13:01 06/06/20 13:47 Lorazepam 1 Mg Tablet PO 1 mg Q4H PRN Administration Anxiety Magnesium Hydroxide 30 ml 05/23/20 21:02 Milk Of Magnesia 30 Ml Oral.Susp PO DAILY PRN Constipation Naproxen 500 mg 05/24/20 10:31 06/09/20 20:58 Naproxen 500 Mg Tablet PO 500 mg BID PRN Administration Pain, Moderate (Pain Scale 4-6 Olanzapine 5 mg 05/22/20 13:00 06/04/20 19:07 Olanzapine Odt 10 Mg Tab.Rapdis TRANSLINGU 5 mg DAILY PRN Administration Agitation Olanzapine 2.5 mg 05/23/20 09:00 06/09/20 09:24 Olanzapine 2.5 Mg Tablet PO 2.5 mg DAILY SEBASTIÁN Administration Olanzapine 20 mg 05/29/20 21:00 06/09/20 21:58 Olanzapine Odt 10 Mg Tab.Rapdis TRANSLINGU 20 mg BEDTIME SEBASTIÁN Administration Oxcarbazepine 600 mg 06/05/20 21:00 06/09/20 21:58 Oxcarbazepine 300 Mg Tablet PO 600 mg BID SEBASTIÁN Administration Trazodone HCl 200 mg 05/21/20 21:00 06/09/20 21:58 Trazodone Hcl 100 Mg Tablet PO 200 mg BEDTIME SEBASTIÁN Administration Trazodone HCl 50 mg 05/23/20 21:02 05/30/20 02:09 Trazodone Hcl 50 Mg Tablet PO 50 mg BEDTIME PRN Administration Insomnia Allergies Allergies Allergy/AdvReac Type Severity Reaction Status Date / Time No Known Allergies Allergy Verified 05/21/20 02:41 [No Known Allergies*] Assessment & Plan Assessment & Plan (1) Bipolar I, most recent episode manic, severe with psychotic behavior: Status: Acute Code(s): F31.2 - Bipolar disorder, current episode manic severe with psychotic features (2) Otitis media: Qualifiers: Otitis media type: unspecified Chronicity: acute Qualified Code(s): H66.90 - Otitis media, unspecified, unspecified ear Status: Acute Code(s): H66.90 - Otitis media, unspecified, unspecified ear Assessment and Plan: CT current treatment DC planning with anticipated DC 06/10/20 Greater than 50% of the session was spent on counseling and/or coordination of care
[2020-06-10 05:25] VITALS: BP 123/69; PULSE 83; RESP 18; TEMP 36.4; O2SAT 98
[2020-06-10] MEDS: LORazepam 1 MG TABLET PO (06:15)
[2020-06-10] MEDS: OLANZapine ODT 10 MG TAB.RAPDIS 5 MG TRANSLINGU (06:15)
[2020-06-10 09:37] VITALS: BP 123/69; PULSE 83
[2020-06-10] MEDS: lisinopriL 2.5 MG TABLET PO (09:37)
[2020-06-10] MEDS: OLANZapine 2.5 MG TABLET PO (09:37)
[2020-06-10] MEDS: Amoxicillin/Potassium Clav 875 MG TABLET PO ×2 (09:37→22:07)
[2020-06-10] MEDS: OXcarbazepine 300 MG TABLET 600 MG PO ×2 (09:37→22:07)
[2020-06-10] MEDS: Fluticasone/Vilanterol 100/25 BLST.W.DEV 1 PUFF INHALE (11:19)
[2020-06-10] MEDS: Acetaminophen 325 MG TABLET 650 MG PO (18:11)
[2020-06-10] MEDS: hydrOXYzine HCL 25 MG TABLET PO (18:12)
[2020-06-10] MEDS: Benztropine Mesylate 1 MG TABLET PO (22:06)
[2020-06-10] MEDS: Atorvastatin Calcium 40 MG TABLET PO (22:06)
[2020-06-10] MEDS: traZODone HCL 100 MG TABLET 200 MG PO (22:06)
[2020-06-10] MEDS: HaloperidoL 5 MG TABLET 10 MG PO (22:07)
[2020-06-10] MEDS: OLANZapine ODT 10 MG TAB.RAPDIS 20 MG TRANSLINGU (22:08)
[2020-06-11] MEDS: HaloperidoL 5 MG TABLET PO (04:16)
[2020-06-11 07:29] VITALS: BP 127/72; PULSE 95; TEMP 35.9
[2020-06-11 08:15] VITALS: BP 127/72; PULSE 95
[2020-06-11] MEDS: OLANZapine 2.5 MG TABLET PO (08:15)
[2020-06-11] MEDS: Amoxicillin/Potassium Clav 875 MG TABLET PO (08:15)
[2020-06-11] MEDS: lisinopriL 2.5 MG TABLET PO (08:15)
[2020-06-11] MEDS: OXcarbazepine 300 MG TABLET 600 MG PO (08:15)
[2020-06-11] MEDS: Fluticasone/Vilanterol 100/25 BLST.W.DEV 1 PUFF INHALE (08:16)
[2020-06-11] MEDS: hydrOXYzine HCL 25 MG TABLET PO (10:18)
--- NOTE | 2020-06-11 22:50 | P.DS_ITS ---
DS: Providers Provider Date of admission: 05/23/20 14:05 Primary care physician: Unknown Physician Attending physician on admission: Yuridia Smith Consults: 06/07/20 11:26 Consult to Hospitalist Routine Consulting Provider: Hospitalist Reason for consultation: left ear pain 05/24,hurts with touch,afebrile, hx of ear infections Has provider been notified: No Attending physician on discharge: Yuridia Smith Anticipated date of discharge: 06/11/20 DS: Diagnosis Discharge Diagnosis (1) Bipolar I, most recent episode manic, severe with psychotic behavior: Status: Acute (2) Otitis media: Status: Acute Discharge Plan Discharge Patient Disposition: Home, Self-Care Referrals: Jo Peña, therapist [Other] - 06/17/20 2:00 pm (Telehealth) Gayle Palafox psychiatrist [Other] - 07/08/20 9:05 am (Telehealth) Gayle Palafox psychiatrist [Other] - 08/05/20 9:00 am (Telehealth) Pablito Zamora MD [Physician] - (Office will call you directly. ) Discharge Medications: New haloperidol 5 mg Tablet 10 mg PO BEDTIME Qty: 30 RF: 0 oxcarbazepine 300 mg Tablet 600 mg PO BID Qty: 120 RF: 0 olanzapine 2.5 mg Tablet 2.5 mg PO DAILY Qty: 30 RF: 0 benztropine 1 mg Tablet 1 mg PO BEDTIME Qty: 30 RF: 0 olanzapine 10 mg Tablet,Disintegrating 20 mg translingual BEDTIME Qty: 60 RF: 0 naproxen 500 mg Tablet 500 mg PO BID PRN (Reason: Pain, Moderate (Pain Scale 4-6) Qty: 30 RF: 0 amoxicillin-pot clavulanate 875-125 mg Tablet 875 mg PO Q12H Qty: 10 RF: 0 Continued atorvastatin 40 mg tablet 1 tab PO BEDTIME Qty: 30 RF: 0 fluticasone propion-salmeterol [Advair Diskus] 250-50 mcg/dose blister with device 1 puff inhalation BID Qty: 1 RF: 0 albuterol sulfate 2.5 mg /3 mL (0.083 %) solution for nebulization 1 vial inhalation Q4H PRN (Reason: wheezing) Qty: 10 RF: 0 trazodone 100 mg tablet 2 tab PO BEDTIME Qty: 60 RF: 0 hydroxyzine HCl 25 mg tablet 1 tab PO TID PRN (Reason: anxiety) Qty: 90 RF: 0 lisinopril 2.5 mg tablet 1 tab PO DAILY Qty: 30 RF: 0 Trulicity 1.5 mg/0.5 mL pen injector 0.5 ml subcut QWEEK Qty: 1 RF: 0 Discharge Orders: Discharge Order (Routine); Ordered 06/11/20 Ordered By: Yuridia Smith Diet: advance to your usual diet Activity on Discharge: As tolerated Stand Alone Forms: Community Support Discharge Date/Time: 06/11/20 14:38 Visit Report Forms: Patient Portal Discharge page Care Plan Goals: Reduce [facility] Concerns: Bipolar disorder Medication non-compliance Plan of Treatment: Stay on your medications Follow up with your providers Mental Status Exam Mental Status Exam Narrative: Patient was sleeping, but per report she is bizarre, pressured, anxious, responding to internal stimuli, restless at times, hypersexual at times, disorganized with poor insight and judgment Patient Appearance: Well Grooomed Patient Orientation: Person, Place, Time and Situation Level of Consciousness: Awake Patient Behavior: Appropriate and Good Eye Contact Mood Description: Calm Affect Description: Calm Patient Cognition Impaired: No Ability to Follow Directions: Good Speech Pattern: Clear Memory Description: Intact Hallucinations: None Delusions: Not Present Thought Content: positive for Intact, negative for Suicidal Ideation and negative for Homicidal Ideation Judgement: Good DS: Summary Hospital Course Hospital Course: Patient is a 34 year old female with reported history of Bipolar I disorder. She was referred for admission by [facility] crisis due to erratic behaviors at home, including paranoia, and responding to internal stimuli. She has been screaming in public and she has been posting videos on [employer]. She has been talking to herself, and making very odd statements. She has not been compliant with her medication. In the emergency department she was hypersexual, pressured, and quite psychotic. She had placed her feces in her mouth, and she reportedly licked the floor for some time, and is frequently engaging in full conversations with voices only she is hearing. She was treated with PRN medications that were offered to her, and she received 10mh Zyprexa PO and Lorazepam 1mg PO. She was later started on po zyprexa. Upon arrival to she remained delusional, paranoid but in behavioral control. Past Psychiatric History: Per collateral, pt has diagnosis of Bipolar Disorder and has been psychiatrically admitted numerous time in the past for similar presentation (hallucinations, paranoia, lack of sleep). reported that patient has been off of her medications for quite some time (unclear what her previous medication regimen was) Hospital Course Leora was admitted on a CV. She was extremely disorganized on arrival. She was convinced that she was though she also stated that she and her did not have sexual relations. She was religiously preoccupied. She accepted treatment with medication and eventually recompensated on the combination in DC medication She was extensively educated on the need to remain in treatment and by the time of her DC she was clear that it was essential for her to be on medications. She was clear, happy and engaged at the time of DC. Her agreed that she was back to her normal self. Status at Discharge Functional status at discharge: independent ambulation Overall status at discharge: patient is back to baseline Time Spent with Patient Time attestation: Total time spent providing and/or coordinating discharge services:
== END 2020-06-11 14:38 | disposition home or self-care (01) | DRG 885 ==
LOC: HO.ED 05-22 07:03 → HO.PM5 05-23 14:16
PROVIDERS: Physician Assistant Medical; Student in an Organized Health Care Education/Training Program; Admitting Provider Psychiatry & Neurology Psychiatry; Emergency Provider Internal Medicine; Visit Provider Psychiatry & Neurology Psychiatry
DX: F31.2 Bipolar disorder, current episode manic severe with psychotic features (principal); E78.5 Hyperlipidemia, unspecified; J45.909 Unspecified asthma, uncomplicated; I10 Essential (primary) hypertension; H66.92 Otitis media, unspecified, left ear; Z20.828 Contact with and (suspected) exposure to other viral communicable diseases; Z91.14 Patient's other noncompliance with medication regimen; Z23 Encounter for immunization; Z79.51 Long term (current) use of inhaled steroids; Z79.899 Other long term (current) drug therapy
CPT/HCPCS: 36415; 71045; 80048; 80061; 80307; 81003; 81025; 82947; 83036; 84443; 85027; 87635; 90471; 90686; 93005; 99232; 99283; 99285; Q0163

== ENCOUNTER 2021-01-24 13:54 | Emergency (ER) | payer MEDICARE, MEDICAID, SELFPAY ==
[2021-01-24 16:39] VITALS: BP 123/90; PULSE 90; RESP 18; TEMP 36.6; O2SAT 96; BMI 41.2
--- NOTE | 2021-01-24 17:19 | ED.SKABFB ---
HPI - Skin/Abscess/Foreign Bdy General Chief complaint: Skin/Abscess/Foreign Body Stated complaint: gland cyst Time Seen by Provider: 01/24/21 16:57 Source: patient Mode of arrival: ambulatory Limitations: no limitations History of Present Illness HPI narrative: 35-year-old female presents with large cyst to the left labia. States that she went to urgent care however urgent care did not have the proper equipment to drain this cyst. She does report significant amount of labial pain and states that it is very difficult for her walk because of the size of the cyst and the tenderness. She does not report any fevers, chills, chest pain or pressure, palpitations, shortness of breath, abdominal pain, abdominal distention, dysuria, hematuria, loss of sensation, difficulty with bowel movements, or any other concerning symptoms. MD complaint: abscess/boil Onset (ago): week(s) (1) Tetanus up to date: yes Location: genitals Severity: severe Severity scale (1-10): 10 Quality: constant Pain Consistency: constant Relieving factors: none Exacerbating factors: palpation and movement Context: none Associated symptoms: denies other symptoms Treatments prior to arrival: attempted to drain pus at home Related Data Previous Rx's Medication Instructions Recorded Trulicity 0.5 ml SUBCUT QWEEK #1 ml 06/09/20 albuterol sulfate 1 vial INHALATION Q4H PRN #10 ml 06/09/20 amoxicillin-pot clavulanate 875 mg PO Q12H #10 tab 06/09/20 atorvastatin 1 tab PO BEDTIME #30 tab 06/09/20 benztropine 1 mg PO BEDTIME #30 tab 06/09/20 fluticasone propion-salmeterol 1 puff INHALATION BID #1 ea 06/09/20 [Advair Diskus] haloperidol 10 mg PO BEDTIME #30 tab 06/09/20 hydroxyzine HCl 1 tab PO TID PRN #90 tab 06/09/20 lisinopril 1 tab PO DAILY #30 tab 06/09/20 naproxen 500 mg PO BID PRN #30 tab 06/09/20 olanzapine 2.5 mg PO DAILY #30 tab 06/09/20 olanzapine 20 mg TRANSLINGUAL BEDTIME #60 tab 06/09/20 oxcarbazepine 600 mg PO BID #120 tab 10/26/20 trazodone 2 tab PO BEDTIME #60 tab 06/09/20 doxycycline monohydrate 100 mg PO BID 10 Days #20 cap 01/24/21 oxycodone 5 mg PO Q8H PRN #10 tab 01/24/21 Allergies Allergy/AdvReac Type Severity Reaction Status Date / Time No Known Allergies Allergy Verified 05/21/20 02:41 [No Known Allergies*] Review of Systems Review of Systems: Constitutional: No Fever, No Chills ENT/Mouth: No Ear Pain, No Hoarseness, No sore throat Eyes: No Eye Pain, No Swelling, No Redness, No Foreign Body Cardiovascular: No Chest Pain, No SOB Respiratory: No Cough, No Dyspnea Gastrointestinal: No Nausea, No Vomiting, No Diarrhea, No abdominal Pain Genitourinary: No Dysuria, No Hematuria Musculoskeletal: No joint pain, No Myalgias, No Joint Swelling Skin: Positive right labial cyst, No Skin lacerations, No rash Neuro: No Weakness, No Numbness, No Paresthesias, No Loss of Consciousness, No Dizziness, No Headache Psych: No Anxiety/Panic, No Depression Heme/Lymph: no easy bruising, no Lymphadenopathy Endocrine: No Polyuria, No Polydipsia Yes all other systems are reviewed and are negative [facility] Past Medical History Attestation statement: The following information was validated with the patient. Medical History Asthma Hyperlipidemia Hypertension Social History Social History Household Members: Spouse Housing: Apartment Do you presently have visiting nurse or other home services: No Unable to assess alcohol history related to: Unknown and Refusing to respond Alcohol intake: current Alcohol intake frequency: holidays/special occasions only Substance Use Type: Marijuana Advance Directives: Yes Advance Directives Information Provided: No Advance Directives on File: No Patient : No service: No Sexual orientation: Straight/Heterosexual Physical Exam Vital Signs: Vital Signs: Last Vital Signs Temp 97.9 F 01/24/21 16:39 Pulse 90 01/24/21 16:39 Resp 18 01/24/21 16:39 BP 123/90 H 01/24/21 16:39 Pulse Ox 96 01/24/21 16:39 Body Mass Index 41.2 Appearance: Alert. Oriented X3. No acute distress. Eyes: Pupils equal, round and reactive to light. ENT: Pharynx normal. Neck: Normal inspection. Neck supple. CVS: Normal heart rate and rhythm. Pulses normal. Respiratory: No respiratory distress. Breath sounds normal. Abdomen: Soft and nontender. Genitourinary: 5 cm x 4 cm area of induration, erythema, with fluctuance to the right labia. Skin: Skin warm and dry. Normal skin color. Normal skin turgor. Extremities: No lower extremity edema. Neuro: No motor deficit. No sensory deficit. Course Course Course Narrative: 35-year-old female presents with recurrent Bartholin cyst to the right labia. Presented to urgent care earlier today however they stated they did not have the right equipment to properly drained this. Oral analgesics prescribed prior to I&D. Prepped and draped in sterile fashion, cleaned with Betadine, patient tolerated procedure well. Word cath placed with 5 mL of air. Patient does understand that she must follow-up with primary care physician, OBGYN is preferred, or return to the emergency department for wound evaluation in 3 days. Will give doxycycline she does have some cellulitis. She does understand significant skin reaction with doxycycline and sun exposure. Patient verbalized understanding of and agrees plan of care discharge home. Procedures Abscess I/D Site: bartholin's gland Side (if applicable): right Local Anesthetic: lidocaine 2% Amount of anesthesia used (mL): 5 Technique: incised with blade Amount of fluid expressed (mL): 40 Sent for culture/gram staining?: Yes Irrigation: No Packing used?: Word catheter MDM - Skin/Abscess/Foreign Bdy Differential Diagnosis Differential diagnosis: Likely abscess of skin or subcutaneous tissue Medical Records Attestation: I reviewed the patient's medical records. Lab Data Attestation: I reviewed the patient's lab results. Discharge Plan Discharge Clinical Impression: Bartholin cyst Patient Disposition: Home, Self-Care Instructions: Bartholin Cyst (ED) Additional Instructions: You were evaluated for a labial cyst. We placed a word catheter, please follow-up with OBGYN in 3-4 days to have this cyst evaluated. I referred you to Dr. Gallardo. Please call and request an appointment. Please use Tylenol Motrin as needed for pain management. I prescribed doxycycline 100 mg twice a day for the next 10 days. This medication has a significant skin reaction with sun exposure. Please wear long sleeves and hat while going outside. Thank you for choosing this emergency department for evaluation. Please follow-up with primary care physician as needed. Return to the emergency department for any new, concerning, or worsening symptoms. Prescriptions: New doxycycline monohydrate 100 mg capsule 100 mg PO BID 10 Days Qty: 20 RF: 0 oxycodone 5 mg tablet 5 mg PO Q8H PRN (Reason: pain) Qty: 10 RF: 0 No Action haloperidol 5 mg Tablet 10 mg PO BEDTIME Qty: 30 RF: 0 oxcarbazepine 300 mg Tablet 600 mg PO BID Qty: 120 RF: 0 olanzapine 2.5 mg Tablet 2.5 mg PO DAILY Qty: 30 RF: 0 benztropine 1 mg Tablet 1 mg PO BEDTIME Qty: 30 RF: 0 olanzapine 10 mg Tablet,Disintegrating 20 mg translingual BEDTIME Qty: 60 RF: 0 naproxen 500 mg Tablet 500 mg PO BID PRN (Reason: Pain, Moderate (Pain Scale 4-6) Qty: 30 RF: 0 amoxicillin-pot clavulanate 875-125 mg Tablet 875 mg PO Q12H Qty: 10 RF: 0 atorvastatin 40 mg tablet 1 tab PO BEDTIME Qty: 30 RF: 0 fluticasone propion-salmeterol [Advair Diskus] 250-50 mcg/dose blister with device 1 puff inhalation BID Qty: 1 RF: 0 albuterol sulfate 2.5 mg /3 mL (0.083 %) solution for nebulization 1 vial inhalation Q4H PRN (Reason: wheezing) Qty: 10 RF: 0 trazodone 100 mg tablet 2 tab PO BEDTIME Qty: 60 RF: 0 hydroxyzine HCl 25 mg tablet 1 tab PO TID PRN (Reason: anxiety) Qty: 90 RF: 0 lisinopril 2.5 mg tablet 1 tab PO DAILY Qty: 30 RF: 0 Trulicity 1.5 mg/0.5 mL pen injector 0.5 ml subcut QWEEK Qty: 1 RF: 0 Referrals: Kevon Gallardo MD [Physician] - 2 days (word catheter placed for labial cyst) Stand Alone Forms: Work/School Release
[2021-01-24] MEDS: oxyCODONE HCl Immed Release 5 MG TABLET PO (18:03)
[2021-01-24] MEDS: Lidocaine HCl 2 % MPF 5 ML VIAL 10 ML SUBCUT (18:04)
== END 2021-01-24 19:14 | disposition home or self-care (01) ==
PROVIDERS: Emergency Provider Internal Medicine; PCP Internal Medicine
DX: N75.0 Cyst of Bartholin's gland (principal); I10 Essential (primary) hypertension; E78.5 Hyperlipidemia, unspecified; F12.90 Cannabis use, unspecified, uncomplicated; Z79.02 Long term (current) use of antithrombotics/antiplatelets; Z79.899 Other long term (current) drug therapy
CPT/HCPCS: 56420; 87071; 87077; 87186; 87205; 99284

== ENCOUNTER 2021-02-05 20:30 | Emergency (ER) | payer MEDICARE, MEDICAID, SELFPAY ==
[2021-02-05 20:32] VITALS: BP 143/90; PULSE 104; RESP 16; TEMP 36.7; O2SAT 96; BMI 41.2
--- NOTE | 2021-02-05 21:21 | ED_ITS ---
HPI - Ear Problem General Chief complaint: Ear Problems Stated complaint: sore throat, ear ache Time Seen by Provider: 02/05/21 21:21 Source: patient Mode of arrival: ambulatory Limitations: no limitations History of Present Illness HPI Narrative: 35-year-old female with below noted past medical history presenting complaint of left ear pain states on January 24 she had similar pain she would to urgent care and she was given oral antibiotics she does not know what (in review of her EMR it. She was prescribed doxycycline b.i.d. for 10 days) states she finished a course and still having some pain in the ear and s light discharge. There is no fever. MD Complaint: ear pain and ear discharge Location: left ear Duration: constant Severity: moderate Exacerbating factors: nothing Discharge from ear: no Treatment prior to arrival: none Related Data Previous Rx's Medication Instructions Recorded Trulicity 0.5 ml SUBCUT QWEEK #1 ml 06/09/20 albuterol sulfate 1 vial INHALATION Q4H PRN #10 ml 06/09/20 amoxicillin-pot clavulanate 875 mg PO Q12H #10 tab 06/09/20 atorvastatin 1 tab PO BEDTIME #30 tab 06/09/20 benztropine 1 mg PO BEDTIME #30 tab 06/09/20 fluticasone propion-salmeterol 1 puff INHALATION BID #1 ea 06/09/20 [Advair Diskus] haloperidol 10 mg PO BEDTIME #30 tab 06/09/20 hydroxyzine HCl 1 tab PO TID PRN #90 tab 06/09/20 lisinopril 1 tab PO DAILY #30 tab 06/09/20 naproxen 500 mg PO BID PRN #30 tab 06/09/20 olanzapine 2.5 mg PO DAILY #30 tab 06/09/20 olanzapine 20 mg TRANSLINGUAL BEDTIME #60 tab 06/09/20 oxcarbazepine 600 mg PO BID #120 tab 06/09/20 trazodone 2 tab PO BEDTIME #60 tab 06/09/20 doxycycline monohydrate 100 mg PO BID 10 Days #20 cap 01/24/21 oxycodone 5 mg PO Q8H PRN #10 tab 01/24/21 amoxicillin-pot clavulanate 1 tab PO Q12H 10 Days #20 tab 02/05/21 [Augmentin] [id number] 3 drp OTIC (EARS) Q4H 10 Days #10 02/05/21 ml Allergies Allergy/AdvReac Type Severity Reaction Status Date / Time No Known Allergies Allergy Verified 02/05/21 20:38 [No Known Allergies*] Review of Systems Review of Systems: Constitutional: No Weight loss, No Fever, No Chills, No Night Sweats, No Fatigue, No Malaise ENT/Mouth: No Hearing loss, + Ear Pain, No Nasal Congestion, No Sinus Pain, No Hoarseness, No sore throat, No Rhinorrhea, No Swallowing Difficulty Eyes: No Eye Pain, No Swelling, No Redness, No Foreign Body, No Discharge, No Vision Changes Cardiovascular: No Chest Pain, No SOB, No Dyspnea on Exertion, No Orthopnea, No Edema, No Palpitations Respiratory: No Cough, No Sputum, No Wheezing, No Smoke Exposure, No Dyspnea Gastrointestinal: No Nausea, No Vomiting, No Diarrhea, No Constipation, No abdominal Pain, No Hematochezia, No Melena Genitourinary: No Dysuria, No Urinary Frequency, No Hematuria, No Urinary Incontinence, No Urgency, No Flank Pain, No Urinary Flow Changes, No Hesitancy Musculoskeletal: No joint pain, No Myalgias, No Joint Swelling Skin: No Skin Lesions, No rash Neuro: No Weakness, No Numbness, No Paresthesias, No Loss of Consciousness, No Dizziness, No Headache Psych: No Social Issues Heme/Lymph: No Bruising, No Bleeding,No Lymphadenopathy Endocrine: No Polyuria, No Polydipsia, No Temperature Intolerance Yes all other systems are reviewed and are negative [facility] Past Medical History Medical History Asthma Hyperlipidemia Hypertension Social History Social History Household Members: Spouse Housing: Apartment Do you presently have visiting nurse or other home services: No Unable to assess alcohol history related to: Unknown and Refusing to respond Alcohol intake: current Alcohol intake frequency: holidays/special occasions only Substance Use Type: Marijuana Advance Directives: No Advance Directives Information Provided: No Patient : No service: No Sexual orientation: Straight/Heterosexual Physical Exam Vital Signs: Vital Signs: Last Vital Signs Temp 98.1 F 02/05/21 20:32 Pulse 104 H 02/05/21 20:32 Resp 16 02/05/21 20:32 BP 143/90 H 02/05/21 20:32 Pulse Ox 96 02/05/21 20:32 Body Mass Index 41.2 Reviewed Const: General: cooperative and healthy appearing; No acute distress or intoxicated appearing Nutritional Appearance: average body habitus Orientation/consciousness: patient oriented x3 HENMT: Head: Yes normal to inspection Ears: hearing grossly normal bilaterally, hearing grossly not impaired, normal mastoids bilaterally and unable to visualize TM (Diffuse swelling in the ear canal. No lesions. Slight purulent discharge.) on the left General nose exam: Normal external nose present Eyes: General: appearance normal, both eyes and all related structures Visual Mayo: normal visual mayo by confrontation Pupils: Equal, round and reactive pupils present Neck: Neck: Yes normal visual inspection, No positive Brudzinski's sign, No positive Kernig's sign and No tender Thyroid: Thyroid normal Chest: Chest palpation & inspection: normal inspection of the chest Resp: Effort & Inspection: normal respiratory effort Auscultation: clear to auscultation bilaterally Skin: General skin exam: no rashes or lesions noted Neuro: General: patient oriented x3 Cranial nerves: Yes Equal, round and reactive pupils present Extrem: General: Yes normal to inspection Course Course Course Narrative: Otitis externa with mild superimposed cellulitis of the canal. Will need ear drops and Augmentin. Was given doxycycline with infected coverage. No findings suggest mastoiditis, malignant otitis, oral involvement. Feels comfortable plan precaution return follow-up instructions provided. Stable for discharge. Discharge Plan Discharge Clinical Impression: Otitis externa Qualifiers: Otitis externa type: swimmer's ear Chronicity: acute Laterality: left Qualified Code(s): H60.332 - Swimmer's ear, left ear Patient Disposition: Home, Self-Care Instructions: Otitis Externa (ED) Additional Instructions: Please start your antibiotics as prescribed Use your ear drops as prescribed Please do not submerge her head under water Do not install any Q-tips or any other foreign body near Have check after 7 days Return if any concerns or worsening symptoms Thank you Prescriptions: New amoxicillin-pot clavulanate [Augmentin] 875-125 mg tablet 1 tab PO Q12H 10 Days Qty: 20 RF: 0 [id number]-BA 3.5-10,000-1 mg/mL-unit/mL-% drops,suspension 3 drp otic (ears) Q4H 10 Days Qty: 10 RF: 1 No Action haloperidol 5 mg Tablet 10 mg PO BEDTIME Qty: 30 RF: 0 oxcarbazepine 300 mg Tablet 600 mg PO BID Qty: 120 RF: 0 olanzapine 2.5 mg Tablet 2.5 mg PO DAILY Qty: 30 RF: 0 benztropine 1 mg Tablet 1 mg PO BEDTIME Qty: 30 RF: 0 olanzapine 10 mg Tablet,Disintegrating 20 mg translingual BEDTIME Qty: 60 RF: 0 naproxen 500 mg Tablet 500 mg PO BID PRN (Reason: Pain, Moderate (Pain Scale 4-6) Qty: 30 RF: 0 amoxicillin-pot clavulanate 875-125 mg Tablet 875 mg PO Q12H Qty: 10 RF: 0 atorvastatin 40 mg tablet 1 tab PO BEDTIME Qty: 30 RF: 0 fluticasone propion-salmeterol [Advair Diskus] 250-50 mcg/dose blister with device 1 puff inhalation BID Qty: 1 RF: 0 albuterol sulfate 2.5 mg /3 mL (0.083 %) solution for nebulization 1 vial inhalation Q4H PRN (Reason: wheezing) Qty: 10 RF: 0 trazodone 100 mg tablet 2 tab PO BEDTIME Qty: 60 RF: 0 hydroxyzine HCl 25 mg tablet 1 tab PO TID PRN (Reason: anxiety) Qty: 90 RF: 0 lisinopril 2.5 mg tablet 1 tab PO DAILY Qty: 30 RF: 0 Trulicity 1.5 mg/0.5 mL pen injector 0.5 ml subcut QWEEK Qty: 1 RF: 0 doxycycline monohydrate 100 mg capsule 100 mg PO BID 10 Days Qty: 20 RF: 0 oxycodone 5 mg tablet 5 mg PO Q8H PRN (Reason: pain) Qty: 10 RF: 0 Referrals: Pablito Zamora MD [Primary Care Provider] - 1 week
== END 2021-02-05 21:57 | disposition home or self-care (01) ==
PROVIDERS: Emergency Provider Emergency Medicine; PCP Internal Medicine
DX: H60.332 Swimmer's ear, left ear (principal); I10 Essential (primary) hypertension; J45.909 Unspecified asthma, uncomplicated; Z79.899 Other long term (current) drug therapy
CPT/HCPCS: 99283

== ENCOUNTER 2021-07-25 23:39 | Emergency (ER) | payer MEDICARE, MEDICAID, SELFPAY ==
[2021-07-25 23:46] VITALS: BP 131/83; PULSE 99; RESP 20; TEMP 36.6; O2SAT 97; BMI 38.2
[2021-07-26 04:00] VITALS: BP 140/80; PULSE 98; RESP 22
--- NOTE | 2021-07-26 04:16 | ED.BACK ---
HPI - Back Pain/Injury General Chief Complaint: Back Pain/Injury Stated Complaint: Back cramping Time Seen by Provider: 07/26/21 04:07 Source: patient Mode of arrival: ambulatory History of Present Illness HPI Narrative: 36-year-old female with left lower paraspinal back discomfort that is atraumatic and is not been associated with any shortness of breath, fevers, chills, urinary pain/burning/frequency, abdominal pain, nausea, vomiting, or diarrhea. Patient states that she does have underlying back pain but this has worsened. She states that the pain does not radiate into either lower extremity and there is no bowel or bladder dysfunction. Related Data Previous Rx's Medication Instructions Recorded albuterol sulfate 1 vial INHALATION Q4H PRN #10 ml 06/09/20 amoxicillin 875 mg-potassium 875 mg PO Q12H #10 tab 06/09/20 clavulanate 125 mg tablet atorvastatin 40 mg tablet 1 tab PO BEDTIME #30 tab 06/09/20 benztropine 1 mg tablet 1 mg PO BEDTIME #30 tab 06/09/20 dulaglutide 1.5 mg/0.5 mL 0.5 ml SUBCUT QWEEK #1 ml 06/09/20 subcutaneous pen injector (Trulicity) fluticasone 250 mcg-salmeterol 50 1 puff INHALATION BID #1 ea 06/09/20 mcg/dose blistr powdr for inhalation (Advair Diskus) haloperidol 5 mg tablet 10 mg PO BEDTIME #30 tab 06/09/20 hydroxyzine HCl 25 mg tablet 1 tab PO TID PRN #90 tab 06/09/20 lisinopril 2.5 mg tablet 1 tab PO DAILY #30 tab 06/09/20 naproxen 500 mg tablet 500 mg PO BID PRN #30 tab 06/09/20 olanzapine 10 mg disintegrating 20 mg TRANSLINGUAL BEDTIME #60 tab 06/09/20 tablet olanzapine 2.5 mg tablet 2.5 mg PO DAILY #30 tab 06/09/20 oxcarbazepine 300 mg tablet 600 mg PO BID #120 tab 06/09/20 trazodone 100 mg tablet 2 tab PO BEDTIME #60 tab 06/09/20 doxycycline monohydrate 100 mg 100 mg PO BID 10 Days #20 cap 01/24/21 capsule oxycodone 5 mg tablet 5 mg PO Q8H PRN #10 tab 01/24/21 amoxicillin 875 mg-potassium 1 tab PO Q12H 10 Days #20 tab 02/05/21 clavulanate 125 mg tablet (Augmentin) amoxicillin 875 mg-potassium 1 tab PO Q12H 10 Days #20 tab 02/05/21 clavulanate 125 mg tablet (Augmentin) ibuprofen 800 mg tablet 800 mg PO Q8H PRN #30 tab 02/05/21 ousjkbwv-aagiztjka-joykupfzu 3.5 3 drp OTIC (EARS) Q4H 10 Days #10 02/05/21 mg-10,000 unit/mL-1 % ear ml drops,susp nfgkbdpl-psuisytok-ivxlmeplf 3.5 4 drp OTIC (EARS) Q6H 10 Days ml 02/05/21 mg-10,000 unit/mL-1 % ear drops,susp cyclobenzaprine 5 mg tablet 5 mg PO BEDTIME PRN #3 tab 07/26/21 Allergies Allergy/AdvReac Type Severity Reaction Status Date / Time No Known Allergies Allergy Verified 02/05/21 20:38 [No Known Allergies*] Review of Systems Review of Systems: Pertinent positives and negatives as stated in HPI 10 point review of systems otherwise negative. PMFSH Past Medical History Source: nursing notes reviewed Medical History Asthma Hyperlipidemia Hypertension Social History Social History Household Members: Spouse Housing: Apartment Do you presently have visiting nurse or other home services: No Unable to assess alcohol history related to: Unknown and Refusing to respond Alcohol intake: current Alcohol intake frequency: holidays/special occasions only Substance Use Type: Marijuana Advance Directives: No Advance Directives Information Provided: Yes Patient : No service: No Sexual orientation: Straight/Heterosexual Physical Exam Vital Signs: Vital Signs: Last Vital Signs Temp 98 F 07/25/21 23:46 Pulse 99 07/25/21 23:46 Resp 20 07/25/21 23:46 BP 131/83 07/25/21 23:46 Pulse Ox 97 07/25/21 23:46 BMI result Body Mass Index 38.2 VITAL SIGNS: Reviewed. GENERAL: Well developed, well nourished, in no acute distress. HEAD: Normocephalic/atraumatic EYES: PERRLA, EOMI OROPHARYNX: no oral lesions noted, posterior pharynx clear LUNGS: Normal breath sounds. No adventitious sounds or accessory muscle use. SpO2<97> CARDIOVASCULAR: Regular rate and rhythm without noted murmurs ABDOMEN: Soft, non-tender, non-distended with bowel sounds. BACK: Spasm noted at left lower paraspinal approximate L4/L5, no CVA tenderness, straight leg test is negative NEUROLOGIC: Alert and oriented x 4. Strength and sensation to light touch were grossly intact x 4. Course Course Course Narrative: This is a 36-year-old female with acute on chronic back pain that is not concerning for cauda equina and feel that this is consistent with muscle spasm associated with acute on chronic back pain. No evidence to suggest urinary or pulmonary etiologies. Will give combination analgesics and if pain has resolved patient will be discharged home. On re-evaluation patient has had complete resolution of her pain and is stable for discharge to home. Discharge Plan Discharge Clinical Impression: Back pain, Muscle spasm Patient Disposition: Home, Self-Care Instructions: Muscle Spasm (ED), Back Pain (ED) Additional Instructions: 1. Tylenol 1000 mg, orally, every 6 hours as needed for pain control. Do not exceed 4000 mg within 24 hours. 2. Ibuprofen 400 mg, orally with milk or food, every 6 hours as needed for pain control. You may take this medication with the Tylenol for increased symptom relief. 3. Lidocaine patch, this is available [id number]-tzimzoz and can be apply to area of maximal tenderness as directed on the outside packaging. 4. Please follow-up with your primary care provider for re-evaluation further outpatient management. Return to the ER for acute worsening of symptoms. Prescriptions: New cyclobenzaprine 5 mg tablet 5 mg PO BEDTIME PRN (Reason: muscle spasm) Qty: 3 RF: 0 No Action amoxicillin-pot clavulanate [Augmentin] 875-125 mg tablet 1 tab PO Q12H 10 Days Qty: 20 RF: 0 nsidlbwq-hxzxaksyh-VT 3.5-10,000-1 mg/mL-unit/mL-% drops,suspension 3 drp otic (ears) Q4H 10 Days Qty: 10 RF: 1 amoxicillin-pot clavulanate [Augmentin] 875-125 mg tablet 1 tab PO Q12H 10 Days Qty: 20 RF: 0 eefcmbry-oxiyqmkld-XZ 3.5-10,000-1 mg/mL-unit/mL-% drops,suspension 4 drp otic (ears) Q6H 10 Days RF: 1 ibuprofen 800 mg tablet 800 mg PO Q8H PRN (Reason: pain) Qty: 30 RF: 0 haloperidol 5 mg Tablet 10 mg PO BEDTIME Qty: 30 RF: 0 oxcarbazepine 300 mg Tablet 600 mg PO BID Qty: 120 RF: 0 olanzapine 2.5 mg Tablet 2.5 mg PO DAILY Qty: 30 RF: 0 benztropine 1 mg Tablet 1 mg PO BEDTIME Qty: 30 RF: 0 olanzapine 10 mg Tablet,Disintegrating 20 mg translingual BEDTIME Qty: 60 RF: 0 naproxen 500 mg Tablet 500 mg PO BID PRN (Reason: Pain, Moderate (Pain Scale 4-6) Qty: 30 RF: 0 amoxicillin-pot clavulanate 875-125 mg Tablet 875 mg PO Q12H Qty: 10 RF: 0 atorvastatin 40 mg tablet 1 tab PO BEDTIME Qty: 30 RF: 0 fluticasone propion-salmeterol [Advair Diskus] 250-50 mcg/dose blister with device 1 puff inhalation BID Qty: 1 RF: 0 albuterol sulfate 2.5 mg /3 mL (0.083 %) solution for nebulization 1 vial inhalation Q4H PRN (Reason: wheezing) Qty: 10 RF: 0 trazodone 100 mg tablet 2 tab PO BEDTIME Qty: 60 RF: 0 hydroxyzine HCl 25 mg tablet 1 tab PO TID PRN (Reason: anxiety) Qty: 90 RF: 0 lisinopril 2.5 mg tablet 1 tab PO DAILY Qty: 30 RF: 0 Trulicity 1.5 mg/0.5 mL pen injector 0.5 ml subcut QWEEK Qty: 1 RF: 0 doxycycline monohydrate 100 mg capsule 100 mg PO BID 10 Days Qty: 20 RF: 0 oxycodone 5 mg tablet 5 mg PO Q8H PRN (Reason: pain) Qty: 10 RF: 0 Referrals: Pablito Zamora MD [Primary Care Provider] - 2 days
[2021-07-26] MEDS: Acetaminophen 325 MG TABLET 975 MG PO (04:32)
[2021-07-26] MEDS: Ketorolac Tromethamine 30 MG/ML VIAL 15 MG IM (04:32)
[2021-07-26] MEDS: Cyclobenzaprine HCl 5 MG TABLET PO (04:33)
[2021-07-26] MEDS: Lidocaine 4 % Patch ADH..PATCH 1 PATCH TRANSDERMA (04:34)
== END 2021-07-26 06:00 | disposition home or self-care (01) ==
PROVIDERS: Emergency Provider Student in an Organized Health Care Education/Training Program; PCP Internal Medicine
DX: M54.50 Low back pain, unspecified (principal); M62.830 Muscle spasm of back; I10 Essential (primary) hypertension; E78.5 Hyperlipidemia, unspecified; Z79.02 Long term (current) use of antithrombotics/antiplatelets; Z79.899 Other long term (current) drug therapy
CPT/HCPCS: 96372; 99284; J1885